=== PATIENT | female | born 1970 | race Caucasian/White ===

== ENCOUNTER → 2020-03-28 | Outpatient (CLI) | payer MEDICAID | END | disposition home or self-care (01) | LOC: LABWHC1 13:50 | PROVIDERS: ATTEND Pediatrics Pediatric Infectious Diseases | DX: U07.1 COVID-19 (principal) | CPT/HCPCS: 87635 ==

== ENCOUNTER → 2021-03-29 | Outpatient (CLI) | payer MEDICAID ==
--- NOTE | 2021-04-01 11:34 | MM ---
Reason for exam: screening (asymptomatic). History: Patient is postmenopausal. Physical Findings: A clinical breast exam by your physician is recommended on an annual basis and results should be correlated with mammographic findings. MG 3D Screening Mammo W/Cad Bilateral CC and MLO view(s) were taken. XCCL view(s) were taken of the right breast. No prior studies available for comparison. The breast tissue is heterogeneously dense. This may lower the sensitivity of mammography. Finding: There are indeterminate microcalcifications in the upper outer quadrant of the left breast zone B. ASSESSMENT: Incomplete: need additional imaging evaluation, BI-RAD 0 RECOMMENDATION: Special view mammogram of the left breast. [facility] will attempt to contact patient to return for supplemental views.
== END | disposition home or self-care (01) ==
LOC: RADMAMWWP 10:57
PROVIDERS: ATTEND Family Medicine
DX: Z12.31 Encounter for screening mammogram for malignant neoplasm of breast (principal); Z78.0 Asymptomatic menopausal state
CPT/HCPCS: 77063; 77067

== ENCOUNTER → 2021-04-02 | Outpatient (CLI) | payer MEDICAID ==
--- NOTE | 2021-04-03 10:15 | MM ---
Reason for exam: additional evaluation requested from abnormal screening. Last mammogram was performed less than 1 month ago. History: Patient is postmenopausal. Took hormonal contraceptives beginning at age 20. Physical Findings: Nurse Summary: 1cm nodule in the left breast at 2 o'clock (nurse dw). MG 3D Work Up W/Cad LT CC with magnification, LM with magnification, and LM view(s) were taken of the left breast. Prior study comparison: March 29, 2021, bilateral MG 3d screening mammo w/cad. The breast tissue is heterogeneously dense. This may lower the sensitivity of mammography. Finding: There are indeterminate grouped/clustered calcifications in the outer quadrant, central position of the left breast. These results were verbally communicated with the patient and result sheet given to the patient on 04/02/21. ASSESSMENT: Suspicious, BI-RAD 4 RECOMMENDATION: Stereotactic core biopsy of the left breast. Called Dr. Connors's office with mammographic findings and has scheduled an appointment for the patient for 05/30/21 at 8:[address] Luo. Biopsy scheduled for 04/05/21 at 10:00. PRELIMINARY REPORT CALLED AND FAXED TO DR. LUO ON 04/03/21.
--- NOTE | 2021-04-03 10:20 | USB ---
Reason for exam: additional evaluation requested from abnormal screening. History: Patient is postmenopausal. Took hormonal contraceptives beginning at age 20. US Breast Limited LT Left limited breast ultrasound including focal area of concern, retroareolar and axilla demonstrates a 7 x 2 x 5mm oval, cystic lesion at 2 o'clock. These results were verbally communicated with the patient and result sheet given to the patient on 04/02/21. ASSESSMENT: Benign, BI-RAD 2 RECOMMENDATION: Stereotactic core biopsy of the left breast. (calcifications) Manage patient on a clinical basis. Called Dr. Connors's office with mammographic findings and has scheduled an appointment for the patient for 05/30/21 at 8:[address] Luo. Biopsy scheduled for 04/05/21 at 10:00. PRELIMINARY REPORT CALLED AND FAXED TO DR. LUO ON 04/03/21.
--- NOTE | 2021-04-04 09:50 | USB ---
Reason for exam: additional evaluation requested from abnormal screening. History: Patient is postmenopausal. Took hormonal contraceptives beginning at age 20. US Breast Workup Limited LT Left limited breast ultrasound including focal area of concern, retroareolar and axilla demonstrates a 7 x 2 x 5mm oval, cystic lesion at 2 o'clock. These results were verbally communicated with the patient and result sheet given to the patient on 04/02/21. ASSESSMENT: Benign, BI-RAD 2 RECOMMENDATION: Stereotactic core biopsy of the left breast. (calcifications) Manage patient on a clinical basis. Called Dr. Connors's office with mammographic findings and has scheduled an appointment for the patient for 05/30/21 at 8:[address] Luo. Biopsy scheduled for 04/05/21 at 10:00. PRELIMINARY REPORT CALLED AND FAXED TO DR. LUO ON 04/03/21.
== END | disposition home or self-care (01) ==
LOC: RADMAMWWP 12:34
PROVIDERS: ATTEND Family Medicine
DX: R92.2 Inconclusive mammogram (principal); R92.1 Mammographic calcification found on diagnostic imaging of breast; N60.02 Solitary cyst of left breast; Z78.0 Asymptomatic menopausal state
CPT/HCPCS: 77061; 77065

== ENCOUNTER → 2021-04-05 | Day surgery (SDC) | payer MEDICAID ==
[2021-04-05 09:40] VITALS: RESP 16; TEMP 98.5
[2021-04-05 11:38] VITALS: BP 129/85; PULSE 67
--- NOTE | 2021-04-05 12:23 | MM ---
Stereotactic Mammotome core biopsy left breast. HISTORY: 2 separate biopsy left breast for microcalcifications The microcalcifications in question within the left breast were targeted by the undersigned. Procedure was performed by the undersigned. Informed consent was obtained and all of the patients questions were answered. The standard sterile technique was utilized and appropriate local anesthesia was obtained with 1% lidocaine. Mammotome probe was advanced and multiple core samples were obtained from the posterior site followed by anterior site and sent to pathology for interpretation. Microclip markers was deployed at the sites of biopsy. Post procedural mammogram demonstrates appropriate deployment of radiopaque clip markers. The patient tolerated the procedure well and left the department in stable condition. Pathology results are pending. IMPRESSION: Successful stereotactic core biopsy left breast (2 sites) with pathology results pending. Pathology Results: Malignant A. 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 See Surgical Pathology Cancer Case Summary and Comment. B. 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 See Surgical Pathology Cancer Case Summary and Comment. Recommendation Surgical consult of the left breast. YOGI
== END ==
LOC: RADMAMWWP 09:10
PROVIDERS: ATTEND Surgery
DX: C50.912 Malignant neoplasm of unspecified site of left female breast (principal); Z17.1 Estrogen receptor negative status [ER-]; R92.1 Mammographic calcification found on diagnostic imaging of breast
CPT/HCPCS: 88305; 88342; 88341; 19081; 19082; A4648; J2001

== ENCOUNTER → 2021-04-09 | Outpatient (CLI) | payer MEDICAID ==
--- NOTE | 2021-04-09 17:02 | XR ---
Result: Clinical History: Pain and swelling. Comparison: None available. Technique: 3 views of the right hand. Findings: There is linear lucency within the fifth metacarpal shaft seen on the lateral view. The remaining visualized osseous structures are in anatomic alignment. The joint spaces are preserve d. There is no definite radiopaque foreign body seen. Impression: Suspicious nondisplaced fracture of the fifth metacarpal.
== END | disposition home or self-care (01) ==
LOC: RADXRMAIN 16:33
PROVIDERS: ATTEND Emergency Medicine
DX: M79.641 Pain in right hand (principal)

== ENCOUNTER → 2021-04-17 | Outpatient (CLI) | payer MEDICAID ==
--- NOTE | 2021-04-18 13:20 | BMR ---
EXAMINATION TYPE: MR breast BILAT wo/w con DATE OF EXAM: 04/17/2021 COMPARISON: 3-D bilateral breast mammogram March 29, 2021 BI-RADS 0. Diagnostic left breast mammogram Ma y 2020 BI-RADS 4. Limited left breast ultrasound workup April 02, 2021 BI-RADS 2. HISTORY: Left breast cancer. Stereotactic guided biopsy April 05, 2021 2 sites positive for high-grade DCIS both levels. TECHNIQUE: A series of fat and water weighted images in the long and short axis views of both breasts are obtained in conjunction with dynamic contrast MRI with subtraction technique. The patient was i njected with 7 mL intravenous Gadavist gadolinium contrast. Three-dimensional and additional postpr ocessing imaging is created on independent workstation and reviewed during official interpretation of this study. FINDINGS: Heterogeneously dense fibroglandular tissue bilaterally is redemonstrated. T2 and STIR weig hted images show scattered small thin-walled cysts bilaterally on background dense tissue. In additio n in the outer aspect left breast there is 2.8 x 2.0 x 2.2 cm oval circumscribed fluid collection pre sumed post sampling hematoma anterior depth. Symmetric benign-appearing subcentimeter axillary lymph nodes are identified. No suspicious axillary adenopathy. Dynamic postcontrast imaging shows mild/mode rate background enhancement with more prominent enhancement throughout the left breast. Delayed post contrast axial images show no suspicious internal mammary adenopathy. There is focal atelectatic van ge in the anterior right lung base noted. With regards to the right breast there is no abnormal skin thickening. No pathologic enhancement or e nhancing masses identified. The chest wall is intact. With regards to the left breast. There is artif act from biopsy clip noted in the lateral aspect of the well-defined fluid collection or hematoma. Ar tifact from second biopsy clip less well-seen but is present just inferior posterior to this seen bes t on subtraction and postcontrast images for reference image 267 series 701. No abnormal skin thicken ing. The chest wall is intact. With regards to the left breast, post biopsy hematoma and artifact from biopsy clips identified. Ther e is nonmass enhancement extending up to 1.0 cm relative to the nipple level of nipple extending over approximately 7 cm length of the lateral portion of the left breast corresponding to residual suspic ious regional calcifications on mammogram. Dynamic postcontrast imaging shows fairly benign gradual e nhancement but presence of regional suspicious calcifications is worrisome. In addition in the anterior depth inferior 6:00 position left breast there is 1.5 x 0.9 x 1.9 cm oval enhancing lesion that shows areas of suspicious gradual and washout enhancement on dynamic postcontr ast imaging. Finally in the marked posterior aspect left breast there is a 5 x 2 x 10 mm enhancing subcentimeter m ass with areas of plateau and washout-type enhancement on dynamic postcontrast imaging more inferior to the larger suspicious lesion. IMPRESSION: No MRI evidence for invasive malignancy in the right breast. Abnormal regional enhancemen t left breast extends anterior and posterior to the biopsy clips corresponding to regional suspicious microcalcifications on mammogram. 2 additional areas of concern in the left breast noted on MRI. Pat ient likely not candidate based on mammogram and MRI findings for conservation therapy or treatment i n the biopsy-proven left breast neoplasm, high-grade DCIS.
== END | disposition home or self-care (01) ==
LOC: RADMRIMAIN 16:41
PROVIDERS: ATTEND Surgery
DX: C50.912 Malignant neoplasm of unspecified site of left female breast (principal)
CPT/HCPCS: 77049; C8937; A9585

== ENCOUNTER → 2021-06-26 | Outpatient (CLI) | payer MEDICAID, OTHER ==
--- NOTE | 2021-06-26 14:44 | XR ---
EXAMINATION TYPE: XR chest 2V DATE OF EXAM: 06/26/2021 COMPARISON: NONE TECHNIQUE: PA and lateral views submitted. HISTORY: Cough FINDINGS: The lungs are clear and there is no pneumothorax, pleural effusion, or focal pneumonia. Mild hyperin flation. There is a slight pectus excavatum deformity. Mild hypertrophic change of the spine. IMPRESSION: 1. No acute process.
== END | disposition home or self-care (01) ==
LOC: RADXRMAIN 14:22
PROVIDERS: ATTEND Family Medicine
DX: R05 Cough (principal)
CPT/HCPCS: 71046

== ENCOUNTER 2021-07-12 06:30 | Observation (INO) | payer MEDICAID, OTHER ==
[2021-07-09 15:09] VITALS: BMI 23.3
--- NOTE | 2021-07-11 13:20 | P.GSHP ---
History of Present Illness H&P Date: 07/12/21 Chief Complaint: Left breast cancer 51-year-old female known to our service. Patient diagnosed in March with abnormal mammogram showing diffuse calcifications. Patient had 2 areas biopsied using stereotactic technique. Both biopsy sites revealed high-grade ductal carcinoma in situ. Patient had breast MRI following that was demonstrated 7 cm span of atypical calcifications suspicious for residual disease. Patient has been seen by oncology and plastic surgery. Genetic testing shows no actionable genetic mutation. Patient interested in bilateral mastectomy with reconstruction. Past Medical History Past Medical History: Cancer, Hypertension Additional Past Medical History / Comment(s): left breast cancer dx. 04-05-21, just place on BP med. recently History of Any Multi-Drug Resistant Organisms: None Reported Past Surgical History: Orthopedic Surgery Additional Past Surgical History / Comment(s): Left elbow surgery, D & C's Past Anesthesia/Blood Transfusion Reactions: No Reported Reaction Smoking Status: Former smoker - Past Family History Mother Family Medical History: No Reported History Medications and Allergies Home Medications Medication Instructions Recorded Confirmed Type Losartan Potassium [Cozaar] 50 mg PO DAILY 07/09/21 07/09/21 History Allergies Allergy/AdvReac Type Severity Reaction Status Date / Time bee pollen Allergy Anaphylaxis Verified 07/09/21 14:37 Surgical - Exam Physical exam: General: Well-developed, well-nourished HEENT: Normocephalic, sclerae nonicteric Abdomen: Nontender, nondistended Extremities: No edema Neuro: Alert and oriented Right breast: No masses, no adenopathy Left breast: Residual induration at biopsy site, no adenopathy Assessment and Plan (1) Cancer of left breast Narrative/Plan: 51-year-old female with left breast high-grade DCIS that appears to be widespread by both mammography and MRI. Breast conservation felt to not be an option in this case. Patient is interested in bilateral mastectomy with reconstruction. She is scheduled for bilateral simple mastectomy with left breast sentinel lymph node biopsy/injection and concurrent reconstruction by plastic surgery. Risks of bleeding, infection, scarring, pain, numbness, loss of nipple, seroma, nerve injury, numbness, weakness, lymphedema, possible need for further surgery, recurrence reviewed. She understands and wishes to proceed. Status: Acute Code(s): C50.912 - MALIGNANT NEOPLASM OF UNSPECIFIED SITE OF LEFT FEMALE BREAST SNOMED Code(s): 390141266
[~2021-07-12 06:30] MED LIST: ACETAMINOPHEN TAB 500 MG TAB PO PRN; DEXAMETHASONE SOD PHOSPHATE 4 MG/ML 1 ML VIAL IV ONE; HEPARIN SODIUM,PORCINE/PF 5,000 UNIT/0.5 ML SYRINGE SQ PRN; LIDOCAINE 1% (10MG/ML) FOR IV START INTRADERMA PRN; MIDAZOLAM 2 MG/2 ML VIAL IV PRN; ONDANSETRON 4 MG/2 ML VIAL IVP ONE; Pre Op ABX Message 1 EACH MISC MISCELLANE ONE
[2021-07-12] MEDS: LACTATED RINGERS 1,000 ML IV SCH (07:10)
--- NOTE | 2021-07-12 08:13 | NM ---
EXAMINATION TYPE: NM sentinel node injection DATE OF EXAM: 07/12/2021 COMPARISON: NONE HISTORY: Left breast cancer. Intraductal carcinoma. TECHNIQUE AND FINDINGS: The procedure of sentinel lymph node injection was explained to the patient. The benefits, alternatives, and risks were discussed. An informed consent was then obtained. Overlying skin is cleaned with sterile alcohol. Following this, 490 uCi Tc99m Tilmanocept was inject ed in the upper outer aspect of the left nipple intradermally. The patient tolerated the procedure well without any immediate complication. The patient was kept in the radiology department for short stay after the procedure and then taken to surgery for surgical p rocedure what is presumed intraoperative gamma probe will be used for sentinel lymph node detection. IMPRESSION: Left breast radiotracer injection for sentinel node localization as above.
[2021-07-12] MEDS ORDERED: ceFAZolin 1,000 MG VIAL IVPB ONE (08:17)
[2021-07-12] MEDS ORDERED: PHENYLEPHRINE-0.9% NACL SYG 1,000 MCG/10 ML SYRINGE ONE (08:56)
[2021-07-12] MEDS ORDERED: LIDOCAINE 1% INJ 10MG/ML (20 ML MDV) ONE (08:56)
[2021-07-12] MEDS ORDERED: MIDAZOLAM 2 MG/2 ML VIAL ONE (08:56)
[2021-07-12] MEDS ORDERED: ePHEDrine SULFATE/0.9% NACL/PF 50 MG/5 ML SYRINGE IV ONE (08:56)
[2021-07-12] MEDS ORDERED: PROPOFOL 10 MG/ML 20 ML VIAL IV ONE (08:56)
[2021-07-12] MEDS ORDERED: SUCCINYLCHOLINE CHLORIDE 100 MG/5 ML SYR IV ONE (08:56)
[2021-07-12] MEDS ORDERED: fentaNYL (PF) 50 MCG/ML 2 ML AMP ONE (08:56)
[2021-07-12] MEDS ORDERED: KETAMINE 10 MG/ML 20 ML VIAL ONE (08:56)
[2021-07-12] MEDS ORDERED: METHYLENE BLUE 50 MG/10 ML AMPUL INJ ONE (09:36)
[2021-07-12] MEDS ORDERED: LACTATED RINGERS 1,000 ML IV ONE ×2 (10:30→12:30)
[2021-07-12] MEDS ORDERED: NALOXONE 0.4 MG/ML 1 ML VIAL IV PRN (11:27)
[2021-07-12] MEDS ORDERED: ONDANSETRON 4 MG/2 ML VIAL IVP PRN (11:28)
[2021-07-12] MEDS ORDERED: ACETAMINOPHEN TAB 325 MG TAB PO PRN (11:28)
--- NOTE | 2021-07-12 11:33 | P.OP ---
Date of Procedure: 07/12/21 Procedure(s) Performed: PREOPERATIVE DIAGNOSIS: Left breast cancer POSTOPERATIVE DIAGNOSIS: Same PROCEDURE: Right nipple sparing mastectomy, Left skin sparing mastectomy with sentinel lymph node biopsy with concurrent reconstruction SURGEON: Puja EBL: Minimal ANESTHESIA: General COMPLICATIONS: None OPERATIVE PROCEDURE: Patient was placed on the operating room table in the supine position. 2 mL of methylene blue was injected into the left subareolar space. The breast was then massaged for 5 minutes. The upper torso anteriorly was prepped and draped in usual sterile fashion. The right side was first addressed. A slightly curvilinear incision was made along the inferior aspect of the right breast. Dissection through the subcutaneous tissues took place using electrocautery down to the chest wall circumferentially. The breast was removed from the chest wall at that time. The Ligaclip was used for small visible vessels. No bleeding was encountered. Dr. Grove from plastic surgery then took over on the right chest wall to begin his reconstruction with tissue expanders. The left side was then addressed. A small curvilinear incision in the left axilla took place over the hot spot identified by neoprobe. The subcutaneous tissues were divided using electrocautery and blunt dissection. A total of 2 hot lymph nodes that had bluish discoloration were identified and removed. Both of these lymph nodes had a benign appearance clinically. These were not sent for frozen section but instead sent in formalin for permanent sectioning. A circular incision was then made around the areola. The skin hooks were utilized and the flaps were raised circumferentially using electrocautery down to the chest wall. The breast was again removed from the chest wall using electrocautery. Small vessels were ligated using the clip vegetable sorter. No bleeding was seen. The left chest wall was then again handed off to Dr. Grove for formal closure and tissue yard attendant placement. At that point I exited the room. The family was informed of the progress of surgery. DISPOSITION: Patient to remain in the operating for completion and closure by Dr. Grove.
[2021-07-12] MEDS ORDERED: diphenhydrAMINE 50 MG/ML 1 ML VIAL IVP ONE (12:53)
[2021-07-12] MEDS ORDERED: diphenhydrAMINE 50 MG/ML 1 ML VIAL ONE (12:55)
[2021-07-12] MEDS: HYDROmorphone 0.5 MG/0.5 ML SYRINGE IVP PRN ×6 (12:57→22:51)
--- NOTE | 2021-07-12 14:36 | OP ---
OPERATIVE REPORT DATE OF SURGERY: July 12, 2021. SURGEON: Javier Grove M.D. PREOPERATIVE DIAGNOSES: 1. Acquired loss of right and left breast. 2. Left breast cancer. POSTOPERATIVE DIAGNOSES: 1. Acquired loss of right and left breast. 2. Left breast cancer. OPERATIVE PROCEDURE: 1. Immediate reconstruction right breast following mastectomy with insertion of tissue classification control clerk and subsequent outpatient expansion. 2. Immediate reconstruction left breast following mastectomy with insertion of tissue classification control clerk and subsequent outpatient expansion. 3. Implantation of reconstructive graft for right and left breast reconstruction. OPERATIVE INDICATIONS: Patient is a 51-year-old female, who has invasive cancer of the left breast. She is referred to my care for breast reconstruction. She plans to go undergo bilateral mastectomies for treatment of her breast cancer. The sentinel lymph node will also be removed at the surgery. Additionally, the patient desires to preservation of her right nipple via nipple sparing mastectomy. I have coordinated the patient's surgical reconstruction with her cancer surgeon, Dr. Luo. The patient is aware there are potential risks and complications related to surgery including but not limited to hematoma, seroma, wound healing problems, loss of sensation, postoperative infection, among others. She also understands the staged nature of breast reconstructive surgery. Furthermore, the patient is aware that nipple viability may be of a concern and add additional risks to the procedure she has chosen. She has requested perform the surgery. OPERATIVE PROCEDURE SUMMARY: The patient is seen in the preoperative area, markings made. Procedure reviewed. All questions answered. She was transported to the operating room where she was placed in supine position. Following induction of general tracheal anesthesia, the patient is prepped and draped in the usual fashion. Dr. Luo and the surgical team then proceeded with the right nipple sparing mastectomy through an inferior transverse mid breast incision. Once that procedure was completed. I entered the case for reconstruction of the right breast. Dr. Luo proceeded with the left sentinel lymph node excision and left simple mastectomy procedures. The pectoralis muscle lateral border was identified on the right side where during the chest wall loose connective tissue divided with cautery allowing entry into the potential plane between the pectoralis major and minor muscles was bluntly developed. Medial attachment fibers of the pectoralis major muscle to ribs were released with cautery but no sternal attachments. Additional muscle tissue was required for sufficient reconstructive coverage inferomedially rectus abdominis muscle and fascia, inferolaterally external abdominal oblique muscle and fascia and laterally serratus anterior muscle and fascia were all elevated through this approach with cautery maintaining hemostasis while dissecting. Once a sufficient sized submuscular reconstructive plane was developed, dissection stopped. Irrigations performed. Hemostasis was excellent. Once Dr. Luo completed the left-sided procedures and then proceeded with left reconstruction. Instrument and needle and sponge counts were correct from prior procedures. The pectorals major muscle on the left side was identified where it joined the chest wall on the lateral aspect. Loose connective tissue divided with cautery here allowing entry into the potential plane between the pectoralis major and minor muscles which was bluntly developed. Medial attachment fibers of the pectoralis major muscle to ribs were released with cautery but not all sternal attachments. Additional muscle tissue was required for sufficient reconstructive coverage inferomedially rectus abdominis muscle fascia inferolaterally, external abdominal oblique muscle and fascia and laterally serratus anterior muscle fascia were all elevated through this approach with cautery maintaining hemostasis during the dissection. Once a sufficient sized submuscular reconstructive pocket was created and also in a symmetric fashion to the right. Dissection stopped. Irrigations performed. Hemostasis was excellent. The cavities were sized and minor adjustments made to optimize symmetry. The tissue expanders were now opened on the field. Both expanders were from the [employer] model 133 S FX tissue classification control clerk, 450 mL volume, reference #133 S-[id number] 2-T. The right- sided device serial number was [id number]. The left-sided device serial number was [id number]. Each device was only handled by the surgeon. All air extracted and 100 mL 0.9 normal saline instilled in the each device. The right left-sided tissue expanders were inserted in the reconstructive field. Unfortunately, muscle flap tissue was not sufficient for coverage. It was thin and attenuated, and there were small rents within the tissue. Both expanders were removed and placed in the containers with saline and SurgiMend reconstructive graft opened on the field, 2 sheets measuring 10 x 15 cm, thin and fenestrated were vitalized room temperature saline. Once ready, the SurgiMend was inserted in the right and left reconstructed surgical sites, placing the tissue graft in a modified inferior sling location on each side, securing the graft medially with interrupted and short running 3-0 Vicryl sutures. The expanders were now replaced into the reconstructive pocket deep to the muscle flap and SurgiMend and then the SurgiMend closed the lateral aspect on each side, advancing SurgiMend under the muscle but over the tissue classification control clerk then securing with interrupted and short running 3-0 Vicryl. Complete coverage now obtained. Each classification control clerk was filled to a final volume of 300 mL, which appeared optimal. 19 Rocael channel drains were now inserted in each mastectomy site and brought thru separate stab incisions, right or left anterior lateral chest wall is drain sutured in place with 2-0 Prolene. The right-sided mastectomy wound site was closed, approximated deep dermis using inverted interrupted 4-0 Monocryl completed superficial dermis epidermis with subcuticular 3-0 Prolene. The left-sided procedure performed through a circumareolar approach. This mastectomy wound was now closed in a pursestring fashion using 2-0 Prolene deep dermal suture first followed by finer approximation of the dermis with interrupted 4-0 Monocryl and completing epidermal approximation with michael. Both drains were connected to close bulb suction and patent. Surgical clarke cleansed with saline dried. Postoperative bandages placed using a Kerlix squares and secured with Medipore tape. The patient was then extubated in the operating room, transferred to recovery room in good condition with stable vital signs. ESTIMATED BLOOD LOSS: Was 50 mL. There were no complications. MMODL / IJN: [id number] / YOGI
[2021-07-12] MEDS ORDERED: ALPRAZolam 0.25 MG TAB PO PRN ×2 (16:33→16:36)
[2021-07-12] MEDS: D5-0.45% NACL WITH KCL 20MEQ/L 1,000 ML IV SCH ×2 (16:52→20:31)
[2021-07-12] MEDS: HEPARIN SODIUM,PORCINE/PF 5,000 UNIT/0.5 ML SYRINGE SQ SCH ×2 (16:53→20:24)
[2021-07-12] MEDS: LOSARTAN 50 MG TAB PO SCH (16:58)
[2021-07-12] MEDS: DOCUSATE 100 MG CAP PO SCH (20:23)
[2021-07-12] MEDS: HYDROcodone/APAP 5-325MG 1 EACH TAB PO PRN (20:23)
--- NOTE | 2021-07-12 20:59 | CONS ---
CONSULTATION DATE OF SERVICE: 07/12/2021 REASON FOR CONSULTATION: Advice regarding hypertension and multiple medical issues, requested by Dr. Luo. HISTORY OF PRESENT ILLNESS: This 51-year-old woman with a past medical history hypertension and history of breast cancer underwent right nipple-sparing mastectomy and left skin-sparing mastectomy with sentinel lymph node biopsy and concurrent reconstruction for left breast cancer. There is no history of any fever, rigors or chills. No history of headache, loss of consciousness, seizures at this time. PAST MEDICAL HISTORY: History of hypertension, history of left breast cancer, history of nicotine dependence. MEDICATIONS: Home medications are losartan 50 mg p.o. daily. ALLERGIES: BEE POLLEN. FAMILY HISTORY: No history of heart disease or strokes in the family. SOCIAL HISTORY: Previous history of smoking. Quit smoking in 2014. No history of alcohol intake. REVIEW OF SYSTEMS: ENT: No diminished hearing. No diminished vision. CARDIOVASCULAR SYSTEM: No angina, palpitations. RESPIRATORY SYSTEM: No cough, hemoptysis. GI: No nausea, vomiting, diarrhea. : No dysuria. NERVOUS SYSTEM: No numbness, weakness. ALLERGY/IMMUNOLOGY: No asthma or hay fever. MUSCULOSKELETAL: As mentioned earlier. HEMATOLOGY/ONCOLOGY: As mentioned earlier. ENDOCRINE: No history of diabetes, hypothyroidism. CONSTITUTIONAL: As mentioned earlier. DERMATOLOGY: Negative. RHEUMATOLOGY: Negative. PSYCHIATRY: As mentioned earlier. PHYSICAL EXAMINATION: Patient alert and oriented x3. Pulse 103, blood pressure 125/60, respirations 16, temperature 98.4, pulse ox 94% on room air. HEENT: Conjunctivae normal. NECK: No jugular venous distention. CARDIOVASCULAR: S1, S2 muffled. RESPIRATION: Breath sounds diminished at the bases. No rhonchi. No crackles. ABDOMEN: Soft, non-tender. No mass palpable. LEGS: No edema. No swelling. EXAMINATION OF THE BREAST: Status post surgery. NERVOUS SYSTEM: No focal deficit. LYMPHATICS: No lymph node palpable in neck, axillae or groin. SKIN: No ulcer, rash, bleeding. JOINTS: No active deforming arthropathy. LABS: Labs are not available. The preoperative labs include hemoglobin of 17 in 2019. ASSESSMENT: 1. Status post mastectomy for left breast cancer and concurrent reconstruction. 2. Hypertension. 3. History of degenerative joint disease. 4. History of nicotine dependence. 5. FULL CODE. RECOMMENDATIONS AND DISCUSSION: In this 51-year-old woman who presented with multiple complex medical issues, at this time I recommend to continue current medications, continue with symptomatic treatment. Otherwise, I recommend resuming the home medications. Monitor blood pressure closely. Symptomatic treatment. P.r.n. Xanax. The patient may be asked to follow up with primary physician closely after discharge. Will follow the patient closely with you. Thank you, Dr. Luo, for letting us participate in the care of this patient. MMODL / IJN: [id number] /
[2021-07-13] MEDS: HYDROcodone/APAP 5-325MG 1 EACH TAB PO PRN ×4 (00:29→16:01)
[2021-07-13] MEDS: HYDROmorphone 0.5 MG/0.5 ML SYRINGE IVP PRN ×4 (03:51→17:02)
[2021-07-13] MEDS: LACTATED RINGERS 1,000 ML IV SCH (04:20)
[2021-07-13] MEDS ORDERED: PANTOPRAZOLE 40 MG/10 ML VIAL IV SCH (09:00)
[2021-07-13] MEDS: LOSARTAN 50 MG TAB PO SCH (09:03)
[2021-07-13] MEDS: DOCUSATE 100 MG CAP PO SCH ×2 (09:03→19:38)
[2021-07-13] MEDS: HEPARIN SODIUM,PORCINE/PF 5,000 UNIT/0.5 ML SYRINGE SQ SCH ×3 (09:04→22:12)
[2021-07-13] MEDS: D5-0.45% NACL WITH KCL 20MEQ/L 1,000 ML IV SCH ×2 (09:06→18:18)
[2021-07-13] MEDS ORDERED: IBUPROFEN 600 MG TAB PO PRN (09:59)
--- NOTE | 2021-07-13 09:59 | P.PN ---
Subjective Progress Note Date: 07/13/21 Principal diagnosis: Bilateral mastectomy Patient doing well today. Pain is better than she expected. Still requiring narcotics however. She is moving about. Drain output is appropriate. Objective - Vital Signs Vital signs: Vital Signs Temp 98.2 F 07/13/21 07:30 Pulse 74 07/13/21 07:30 Resp 17 07/12/21 22:59 BP 131/81 07/13/21 07:30 Pulse Ox 96 07/13/21 07:30 Intake & Output 07/12/21 07/13/21 07/13/21 18:59 06:59 18:59 Intake Total 2300 310 Output Total 180 180 60 Balance 2120 130 -60 Weight 65 kg Intake: IV 2250 Intake, IV Titration 50 310 Amount Lactated Ringers 1,000 ml 210 @ 20 mls/hr IV .Q24H [facility] Rx#:[id number] ceFAZolin 2 gm In Sodium 50 100 Chloride 0.9% 50 ml @ 100 mls/hr IVPB Q8H [facility] Rx#: [id number] Output: Drainage 40 180 60 Bilateral Breast 80 Left Breast 20 40 20 Right Breast 20 60 40 Urine 90 Estimated Blood Loss 50 Other: Voiding Method Toilet Toilet # Voids 3 - Exam Bilateral chest wall flaps without ischemia, mild tenderness, no hematoma Assessment and Plan (1) Cancer of left breast Narrative/Plan: Patient doing well today. Continue pain control. Ambulate. Possible discharge later today or tomorrow. Current Visit: No Status: Acute Code(s): C50.912 - MALIGNANT NEOPLASM OF UNSPECIFIED SITE OF LEFT FEMALE BREAST SNOMED Code(s): 871797038
--- NOTE | 2021-07-13 12:54 | P.PN ---
Subjective Progress Note Date: 07/13/21 Principal diagnosis: Status post bilateral mastectomy 51-year-old female with history of hypertension and left breast cancer admitted for bilateral mastectomy. On 07/13/2021- patient is seen and examined at the bedside. She is comfortably sitting up in the bed appears to be in no acute distress. Patient denies having any fevers chills or rigors. No chest pain or palpitations. No cough or difficulty breathing. No abdominal pain nausea vomiting or diarrhea. Patient did not have a bowel movement but says that she is passing gas. Denies having any dysuria or hematuria. On reviewing the vitals T-max of 99.2, heart rate 88, respiratory rate 17, blood pressure 162/79, saturating at 98% on room air. No new labs from this morning. Objective - Vital Signs Vital signs: Vital Signs Temp 98.2 F 07/13/21 07:30 Pulse 74 07/13/21 07:30 Resp 17 07/12/21 22:59 BP 131/81 07/13/21 07:30 Pulse Ox 96 07/13/21 07:30 Intake & Output 07/12/21 07/13/21 07/13/21 18:59 06:59 18:59 Intake Total 2300 310 Output Total 180 180 60 Balance 2120 130 -60 Weight 65 kg Intake: IV 2250 Intake, IV Titration 50 310 Amount Lactated Ringers 1,000 ml 210 @ 20 mls/hr IV .Q24H [facility] Rx#:[id number] ceFAZolin 2 gm In Sodium 50 100 Chloride 0.9% 50 ml @ 100 mls/hr IVPB Q8H [facility] Rx#: [id number] Output: Drainage 40 180 60 Bilateral Breast 80 Left Breast 20 40 20 Right Breast 20 60 40 Urine 90 Estimated Blood Loss 50 Other: Voiding Method Toilet Toilet # Voids 3 - Exam PHYSICAL EXAM GEN. APPEARANCE: alert, in no apparent distress HEENT: No pallor, no icterus NECK: No JVD CHEST: She has bilateral drain in place with minimal serous discharge RESPIRATORY EXAM: Bilateral breath sounds are positive. No wheeze or crackles CARDIOVASCULAR EXAM: regular rate, normal rhythm, normal heart sounds. GI/ABDOMINAL EXAM: soft, normal bowel sounds. Absent: distended, tenderness, guarding, rebound, rigid EXTREMITIES EXAM: No edema NEUROLOGICAL EXAM: alert, oriented X3, no focal deficits PSYCHIATRIC EXAM: normal affect, normal mood SKIN EXAM: no rash Assessment and Plan Assessment: ASSESSMENT Status post bilateral mastectomy for left breast cancer and concurrent reconstruction Hypertension History of DJD History of nicotine dependence PLAN: She is status post postop day 1. Patient is advised to continue with incentive spirometry. DVT prophylaxis with heparin. Patient's blood pressure has been doing better so we'll continue with losartan 50 mg daily. Pain management as per primary team. Further recommendations to follow depending on the progress of the patient.
[2021-07-13 20:28] VITALS: RESP 16
[2021-07-13] MEDS: traMADol 50 MG TAB PO PRN (20:31)
[2021-07-14] MEDS: HYDROcodone/APAP 5-325MG 1 EACH TAB PO PRN ×3 (01:21→13:48)
[2021-07-14] MEDS: traMADol 50 MG TAB PO PRN ×3 (04:05→16:56)
[2021-07-14] MEDS: D5-0.45% NACL WITH KCL 20MEQ/L 1,000 ML IV SCH ×2 (04:07→14:53)
[2021-07-14] MEDS: LACTATED RINGERS 1,000 ML IV SCH (06:33)
[2021-07-14] MEDS ORDERED: PANTOPRAZOLE 40 MG TABLET PO SCH (07:30)
[2021-07-14] MEDS: DOCUSATE 100 MG CAP PO SCH (07:34)
[2021-07-14] MEDS: HEPARIN SODIUM,PORCINE/PF 5,000 UNIT/0.5 ML SYRINGE SQ SCH ×2 (07:35→16:53)
--- NOTE | 2021-07-14 10:18 | P.DS ---
Providers Date of admission: 07/12/21 22:57 Expected date of discharge: 07/14/21 Attending physician: Justus Luo Consults: 07/12/21 11:28 Consult Physician Routine Consulting Provider: Maximilian Hawkins Consult Reason/Comments: Medical management Do you want consulting provider notified?: Yes Primary care physician: Janelle Connors - Discharge Diagnosis(es) (1) Cancer of left breast Patient minute on Thursday after bilateral mastectomy with reconstruction. Patient kept for pain control. Doing well today. Tolerating oral pain medications. Drain output appropriate. Both chest wall with flaps that are viable without evidence of ischemia. Will change dressings. May discharged today. Follow-up one week. Current Visit: No Status: Acute Plan - Discharge Summary Discharge Rx Participant: No New Discharge Prescriptions: New HYDROcodone/APAP 5-325MG [[place] 5-325] 1 tab PO Q6HR PRN 3 Days #12 tab PRN Reason: Analgesia No Action Losartan Potassium [Cozaar] 50 mg PO DAILY Discharge Medication List Losartan Potassium [Cozaar] 50 mg PO DAILY 07/09/21 [History] HYDROcodone/APAP 5-325MG [[place] 5-325] 1 tab PO Q6HR PRN 3 Days #12 tab 07/13/21 [Rx] Follow up Appointment(s)/Referral(s): Justus Luo MD [Medical Doctor] - 07/24/21 2:30 pm Javier Grove MD [STAFF PHYSICIAN] - 07/18/21
[2021-07-14] MEDS: LOSARTAN 50 MG TAB PO SCH (11:07)
[2021-07-14 15:49] VITALS: BP 144/88; PULSE 60; TEMP 98.3
[2021-07-14 16:21] LABS: African American GFR (CKD) >90 (>60 ml/min/1.73 sqM); Anion Gap 4 mmol/L; Blood Urea Nitrogen 3 mg/dL (7-17); Calcium 8.8 mg/dL (8.4-10.2); Carbon Dioxide 26 mmol/L (22-30); Chloride 103 mmol/L (98-107); Glucose 102 mg/dL (74-99); Non-African American GFR(CKD) >90 (>60 ml/min/1.73 sqM); Potassium 4.5 mmol/L (3.5-5.1); Sodium 133 mmol/L (137-145)
[2021-07-14 17:05] LABS: Basophils % (A) 0 %; Eosinophils # (A) 0.1 k/uL (0-0.7); Eosinophils % (A) 1 %; HCT 48.4 % (34.0-46.0); HGB 16.2 gm/dL (11.4-16.0); Lymphocytes # (A) 1.6 k/uL (1.0-4.8); Lymphocytes % (A) 28 %; MCH 37.2 pg (25.0-35.0); MCHC 33.4 g/dL (31.0-37.0); MCV 111.4 fL (80.0-100.0); Macrocytosis Marked; Mean Platelet Volume 7.7; Monocytes # (A) 0.2 k/uL (0-1.0); Monocytes % (A) 4 %; Neutrophils # (A) 3.8 k/uL (1.3-7.7); Neutrophils % (A) 66 %; Platelet Count 168 k/uL (150-450); RBC 4.35 m/uL (3.80-5.40); WBC 5.8 k/uL (3.8-10.6)
== END 2021-07-14 17:38 | disposition home or self-care (01) ==
LOC: OR 06:30 → 4SSUR 12:46 → OR 22:57
PROVIDERS: ADMIT Surgery; ATTEND Surgery
DX: D05.12 Intraductal carcinoma in situ of left breast (principal); I10 Essential (primary) hypertension; Z79.899 Other long term (current) drug therapy; Z87.891 Personal history of nicotine dependence
CPT/HCPCS: 19303 ×2; 38525; 19357 ×2; 97161; 80048; 85025; 88342; 88307; 88341; 38792; G0378 ×3; C1889; C1763; A9520; J2250; J1200; J1100; J0690 ×2; J2405; J2001; J3010; J2370; J0330; J2704; C9113; Q9968; J1170 ×2; J1644 ×3

== ENCOUNTER → 2021-08-06 | Outpatient (CLI) | payer MEDICAID, BC ==
--- NOTE | 2021-08-07 11:26 | ECHOF ---
Referral Reason:C50.812 breast ca MEASUREMENTS -------- HEIGHT: 170.2 cm WEIGHT: 63.5 kg BP: IVSd: 0.9 cm (0.6 - 1.1) LVIDd: 3.2 cm (3.9 - 5.3) LVPWd: 1.2 cm (0.6 - 1.1) IVSs: 1.4 cm LVIDs: 2.0 cm LVPWs: 1.8 cm Ao Diam: 2.9 cm (2.0 - 3.7) AV Cusp: 2.1 cm (1.5 - 2.6) LA Diam: 1.9 cm (2.7 - 3.8) MV EXCURSION: 17.614 mm (> 18.000) MV EF SLOPE: 120 mm/s (70 - 150) EPSS: 0.9 cm MV E Percy: 0.76 m/s MV DecT: 244 ms MV A Percy: 0.46 m/s MV E/A Ratio: 1.64 RAP: 5.00 mmHg RVSP: 16.07 mmHg FINDINGS -------- This was a technically difficult study with suboptimal views. Pt. Has breast expanders. The left ventricular size is normal. Left ventricular wall thickness is normal. Overall left vent ricular systolic function is normal with, an EF between 55 - 60 %. The right ventricle is normal in size. The left atrial size is normal. The right atrial size is normal. The aortic valve was not well visualized. The mitral valve is normal. There is trace mitral regurgitation. The tricuspid valve appears structurally normal. Trace tricuspid regurgitation present. Right rosendo tricular systolic pressure is normal at < 35 mmHg. The pulmonic valve was not well visualized. The aortic root size is normal. Normal inferior vena cava with normal inspiratory collapse consistent with estimated right atrial pre ssure of 5 mmHg. There is no pericardial effusion. CONCLUSIONS -------- 1. Pt. Has Breast expanders. 2. The left ventricular size is normal. 3. Left ventricular wall thickness is normal. 4. Overall left ventricular systolic function is normal with, an EF between 55 - 60 %. 5. There is trace mitral regurgitation. 6. Trace tricuspid regurgitation present. 7. There is no pericardial effusion. [employer] ASSOC: Yolanda Wells RDCS
== END | disposition home or self-care (01) ==
LOC: RADECHMAIN 14:10
PROVIDERS: ATTEND Internal Medicine Hematology & Oncology
DX: C50.812 Malignant neoplasm of overlapping sites of left female breast (principal); I34.0 Nonrheumatic mitral (valve) insufficiency; I07.1 Rheumatic tricuspid insufficiency
CPT/HCPCS: 93306

== ENCOUNTER 2021-08-15 11:25 | Day surgery (SDC) | payer MEDICAID, BC ==
[2021-08-13 14:07] VITALS: BMI 21.9
[~2021-08-15 11:25] MED LIST changes: +HYDROmorphone 0.5 MG/0.5 ML SYRINGE IVP PRN; +LACTATED RINGERS 1,000 ML IV SCH; -LIDOCAINE 1% (10MG/ML) FOR IV START INTRADERMA PRN; -MIDAZOLAM 2 MG/2 ML VIAL IV PRN
[2021-08-15 11:52] VITALS: TEMP 97.5
[2021-08-15] MEDS ORDERED: LIDOCAINE 1% (10MG/ML) FOR IV START INTRADERMA ONE (12:05)
[2021-08-15] MEDS ORDERED: LIDOCAINE (PF) 10 MG/ML 2 ML VIAL SQ ONE ×2 (12:42→13:15)
[2021-08-15] MEDS ORDERED: HEPARIN SODIUM,PORCINE 100 UNIT/ML 5 ML VIAL IV ONE ×2 (12:42→13:26)
[2021-08-15] MEDS ORDERED: SODIUM CHLORIDE 0.9% 100 ML BAG ONE (12:49)
[2021-08-15] MEDS ORDERED: MIDAZOLAM 2 MG/2 ML VIAL ONE (12:49)
[2021-08-15] MEDS ORDERED: PROPOFOL 10 MG/ML 20 ML VIAL IV ONE (12:49)
[2021-08-15] MEDS ORDERED: LIDOCAINE 1% INJ 10MG/ML (20 ML MDV) ONE (12:49)
[2021-08-15] MEDS ORDERED: fentaNYL (PF) 50 MCG/ML 2 ML AMP ONE (12:49)
[2021-08-15] MEDS ORDERED: ceFAZolin 1,000 MG VIAL ONE (12:49)
[2021-08-15] MEDS ORDERED: NALOXONE 0.4 MG/ML 1 ML VIAL IV PRN (13:50)
[2021-08-15] MEDS ORDERED: HYDROcodone/APAP 5-325MG 1 EACH TAB PO PRN (13:50)
--- NOTE | 2021-08-15 13:52 | P.OP ---
Date of Procedure: 08/15/21 Procedure(s) Performed: PREOPERATIVE DIAGNOSIS: Left breast cancer POSTOPERATIVE DIAGNOSIS: Same PROCEDURE: Port-A-Cath placement with fluoroscopic and ultrasound guidance SURGEON: Puja EBL: Minimal ANESTHESIA: Sedation COMPLICATIONS: None OPERATIVE PROCEDURE: Patient was brought and placed on the operative table in the supine position. The patient was sedated per anesthesia that time. The chest and neck were prepped and draped in usual sterile fashion. The ultrasound probe was used to identify the location of the right internal jugular vein. The skin was localized with lidocaine. The Seldinger needle was advanced into the IJ under ultrasound guidance. The wire was advanced through the needle under fluoroscopic guidance into the superior vena cava. A port pocket was created in the right infraclavicular location. The catheter was tunneled from the wire entrance site to the port pocket. The port was then connected to the catheter. The dilator introducer was threaded over the guidewire. The guidewire and dilator were then removed. The catheter was advanced through the introducer and introducer was then removed. The tip was seen to be in the right atrial junction via fluoroscopy. A picture of the radiograph showing the tip at the radial digital junction was taken. Port was flushed with both saline and a Hep- Lock solution. There was good flow both in and out of the port. The port was sutured in underlying tissues using 3-0 silk sutures. The subcutaneous tissues were reapproximated using 3-0 Vicryl sutures and the skin at both locations using 4-0 Monocryl sutures. Skin glue and sterile dressings then applied. DISPOSITION: Stable to recovery room
--- NOTE | 2021-08-15 14:09 | FL ---
EXAMINATION TYPE: FL guided central line placemt HISTORY: Fluoroscopy time Impression: 1. Fluoroscopy support provided to the referring physician. 7 seconds provided.
--- NOTE | 2021-08-15 14:22 | XR ---
EXAMINATION TYPE: XR chest 1V confirm line [facility] DATE OF EXAM: 08/15/2021 COMPARISON: 06/26/2021 HISTORY: Port-A-Cath placement TECHNIQUE: Single frontal view of the chest is obtained. FINDINGS: Postsurgical change overlying the breasts. Mediport catheter seen the tip overlying the SV C. No sizable pneumothorax. Heart size normal. Minimal subsegmental changes left lung base. No overt failure. IMPRESSION: 1. No postprocedural complication identified.
[2021-08-15 14:50] VITALS: RESP 20
[2021-08-15 15:09] VITALS: BP 133/76; PULSE 80
== END 2021-08-15 15:09 | disposition home or self-care (01) ==
LOC: OR 11:25
PROVIDERS: ATTEND Surgery
DX: Z45.2 Encounter for adjustment and management of vascular access device (principal); D05.12 Intraductal carcinoma in situ of left breast; I10 Essential (primary) hypertension; Z87.891 Personal history of nicotine dependence; Z90.13 Acquired absence of bilateral breasts and nipples
CPT/HCPCS: 36561; 77001; C1788; J2250; J2001 ×2; J1642; J1100; J2405; J0690; J3010; J2704; J1644

== ENCOUNTER → 2021-10-28 | Outpatient (CLI) | payer MEDICAID, BC ==
--- NOTE | 2021-10-29 10:11 | XR ---
EXAMINATION TYPE: XR chest 2V DATE OF EXAM: 10/28/2021 COMPARISON: 08/15/2021 TECHNIQUE: PA and lateral views submitted. HISTORY: Chronic cough FINDINGS: There is a retrocardiac areas of subsegmental linear consolidation.. Mediport catheter seen. Postoper ative change overlying the breasts. Heart size normal. No overt failure or pneumonia. IMPRESSION: 1. Basilar atelectasis bilaterally greater on the left underlying early infiltrate not entirely exclu ded correlate clinically..
== END | disposition home or self-care (01) ==
LOC: RADXRMAIN 17:50
PROVIDERS: ATTEND Internal Medicine
DX: R05.3 Chronic cough (principal)
CPT/HCPCS: 71046

== ENCOUNTER → 2021-10-31 | Outpatient (CLI) | payer MEDICAID, BC ==
[2021-10-31 11:51] LABS: African American GFR (CKD) >90 (>60 ml/min/1.73 sqM); Blood Urea Nitrogen 6 mg/dL (7-17); Non-African American GFR(CKD) >90 (>60 ml/min/1.73 sqM)
--- NOTE | 2021-10-31 13:06 | CT ---
EXAMINATION TYPE: CT chest w con DATE OF EXAM: 10/31/2021 COMPARISON: Chest x-ray 10/28/2021 HISTORY: cough, chest congestion CT DLP: 317.8 mGycm Automated exposure control for dose reduction was used. CONTRAST: CT scan of the chest is performed with IV Contrast, patient injected with 100 mL of Isovue 300. FINDINGS: LUNGS: Bandlike areas of probable atelectatic changes are again noted at the lung bases. There is a s mall focal area of groundglass opacity axial image 37 the right lower lobe which may be related to at electatic changes, difficult to exclude an early pneumonia.. Subpleural 5 mm nodular density and axia l image 36 in the right middle lobe, nodular density along the fissure which is likely focal thickeni ng on axial image 32, findings may be postinflammatory. There is no pleural effusion or pneumothorax seen. The tracheobronchial tree is patent. MEDIASTINUM: There are no greater than 1 cm hilar or mediastinal lymph nodes. No pericardial effusi on is seen. AORTA: No additional significant abnormality is seen. OTHER: Surgical clips are present in left axilla, there is a port over the right chest, right jugula r central venous catheter, distal tip the catheter is within the superior vena cava . IMPRESSION: Subpleural nodule may be postinflammatory, additional findings above, consider follow-up CT in 6-12 months to assess for stability.
== END | disposition home or self-care (01) ==
LOC: RADPROMAIN 10:32
PROVIDERS: ATTEND Internal Medicine Hematology & Oncology
DX: C50.812 Malignant neoplasm of overlapping sites of left female breast (principal); R05.9 Cough, unspecified
CPT/HCPCS: 82565; 84520; 71260; Q9967

== ENCOUNTER → 2021-11-04 | Outpatient (CLI) | payer MEDICAID, BC ==
--- NOTE | 2021-11-04 17:10 | ECHOF ---
Referral Reason:Z01.818 Chemo MEASUREMENTS -------- HEIGHT: 170.2 cm WEIGHT: 61.2 kg BP: RVIDd: 2.6 cm (< 3.3) IVSd: 0.9 cm (0.6 - 1.1) LVIDd: 3.9 cm (3.9 - 5.3) LVPWd: 1.1 cm (0.6 - 1.1) IVSs: 1.1 cm LVIDs: 3.1 cm LVPWs: 1.4 cm LA Diam: 3.1 cm (2.7 - 3.8) Ao Diam: 3.4 cm (2.0 - 3.7) AV Cusp: 1.9 cm (1.5 - 2.6) MV EXCURSION: 18.612 mm (> 18.000) MV EF SLOPE: 115 mm/s (70 - 150) EPSS: 0.5 cm MV E Percy: 0.74 m/s MV DecT: 191 ms MV A Percy: 0.65 m/s MV E/A Ratio: 1.13 RAP: 5.00 mmHg RVSP: 16.30 mmHg FINDINGS -------- Sinus rhythm. Pt has breast cancer and expanders in. LV size, wall thickness and systolic function are normal, with an EF greater than 55%. The left rosendo tricular size is normal. The right ventricle is normal in size. The left atrial size is normal. The right atrial size is normal. The aortic valve is trileaflet, and appears structurally normal. No aortic stenosis or regurgitation. There is trace mitral regurgitation. Mild tricuspid regurgitation present. Right ventricular systolic pressure is normal at < 35 mmHg. The pulmonic valve was not well visualized. There is no pericardial effusion. CONCLUSIONS -------- 1. Pt has breast cancer and expanders in. 2. LV size, wall thickness and systolic function are normal, with an EF greater than 55%. 3. The left ventricular size is normal. 4. The right ventricle is normal in size. 5. The left atrial size is normal. 6. The right atrial size is normal. 7. The aortic valve is trileaflet, and appears structurally normal. No aortic stenosis or regurgitati on. 8. There is trace mitral regurgitation. 9. Mild tricuspid regurgitation present. 10. The pulmonic valve was not well visualized. 11. There is no pericardial effusion. SUCKER MACHINE OPERATOR: Joselyn Castro RDCS
== END | disposition home or self-care (01) ==
LOC: RADECHMAIN 13:04
PROVIDERS: ATTEND Internal Medicine Hematology & Oncology
DX: Z01.812 Encounter for preprocedural laboratory examination (principal); I34.0 Nonrheumatic mitral (valve) insufficiency; I07.1 Rheumatic tricuspid insufficiency
CPT/HCPCS: 93306

== ENCOUNTER 2021-12-10 07:18 | Day surgery (SDC) | payer MEDICAID, BC ==
[2021-12-04 14:26] VITALS: BMI 21.9
[~2021-12-10 07:18] MED LIST changes: -ACETAMINOPHEN TAB 500 MG TAB PO PRN; -HEPARIN SODIUM,PORCINE/PF 5,000 UNIT/0.5 ML SYRINGE SQ PRN; +LIDOCAINE 1% (10MG/ML) FOR IV START INTRADERMA PRN; +MIDAZOLAM 2 MG/2 ML VIAL IV PRN
[2021-12-10 08:02] LABS: Basophils % (A) 0 %; Eosinophils # (A) 0.2 k/uL (0-0.7); Eosinophils % (A) 4 %; HCT 36.7 % (34.0-46.0); HGB 12.2 gm/dL (11.4-16.0); Lymphocytes # (A) 1.6 k/uL (1.0-4.8); Lymphocytes % (A) 34 %; MCH 37.1 pg (25.0-35.0); MCHC 33.1 g/dL (31.0-37.0); Macrocytosis Marked; Mean Platelet Volume 7.7; Monocytes # (A) 0.2 k/uL (0-1.0); Monocytes % (A) 5 %; Neutrophils # (A) 2.6 k/uL (1.3-7.7); Neutrophils % (A) 56 %; Platelet Count 216 k/uL (150-450); RBC 3.28 m/uL (3.80-5.40); RDW 14.1 % (11.5-15.5); WBC 4.6 k/uL (3.8-10.6)
[2021-12-10] MEDS ORDERED: GLYCOPYRROLATE 0.2 MG/ML 2 ML VIAL ONE (08:44)
[2021-12-10] MEDS ORDERED: PROPOFOL 10 MG/ML 20 ML VIAL IV ONE (08:44)
[2021-12-10] MEDS ORDERED: ROCURONIUM 10 MG/ML (5 ML VIAL) IV ONE (08:44)
[2021-12-10] MEDS ORDERED: SUCCINYLCHOLINE CHLORIDE 100 MG/5 ML SYR IV ONE (08:44)
[2021-12-10] MEDS ORDERED: fentaNYL (PF) 50 MCG/ML 2 ML AMP ONE (08:44)
[2021-12-10] MEDS ORDERED: NEOSTIGMINE 1 MG/ML 10 ML VIAL ONE (08:44)
[2021-12-10] MEDS ORDERED: MIDAZOLAM 2 MG/2 ML VIAL ONE (08:44)
[2021-12-10] MEDS ORDERED: LIDOCAINE 1% INJ 10MG/ML (20 ML MDV) ONE (08:44)
[2021-12-10] MEDS ORDERED: LACTATED RINGERS 1,000 ML IV ONE (10:24)
[2021-12-10 11:02] VITALS: TEMP 97
[2021-12-10] MEDS ORDERED: HYDROcodone/APAP 5-325MG 1 EACH TAB ONE (11:32)
[2021-12-10] MEDS ORDERED: HYDROcodone/APAP 5-325MG 1 EACH TAB PO ONE (11:37)
[2021-12-10 11:45] VITALS: RESP 16
[2021-12-10 11:57] VITALS: BP 119/81; PULSE 61
--- NOTE | 2021-12-10 20:42 | OP ---
OPERATIVE REPORT DATE OF SURGERY: 12/10/2021 PREOPERATIVE DIAGNOSIS: 1. Acquired loss, right and left breast. 2. Personal history of breast cancer. 3. Personal history of bilateral mastectomy. 4. Acquired deformity right and left reconstructed breast. 5. Acquired loss right and left breast including inframammary fold. POSTOPERATIVE DIAGNOSIS: 1. Acquired loss right and left breast. 2. Personal history of breast cancer. 3. Personal history of bilateral mastectomy. 4. Acquired deformity of right and left reconstructed breast. 5. Acquired loss right and left breast inframammary fold. OPERATIVE PROCEDURES: 1. Replace right breast tissue robotics systems engineer with silicone breast implant for right breast reconstruction. 2. Revision right reconstructed breast. 3. Replace left breast tissue robotics systems engineer with silicone breast implant for left breast reconstruction. 4. Revision left reconstructed breast. 5. Reconstruction of right and left inframammary fold via local advancement flaps, 72 square cm. 6. Implantation of reconstructive graft for right and left breast reconstruction. OPERATIVE INDICATIONS: The patient is a 51-year-old female who has undergone bilateral mastectomy procedures for treatment of left breast cancer. She chose to proceed with immediate reconstruction via tissue robotics systems engineer technique. Expanders were placed immediately after mastectomy and she completed subsequent outpatient expansion and chemotherapy. She is returning to surgery today for replacement of her expanders with silicone breast implants, revision of acquired deformities from mastectomy and expansion process, reconstruction right and left breast and also reconstruction right and left inframammary folds that have been effaced by the expansion process. The patient understands that there are potential risks and complications to the surgery, including but not limited to hematoma, seroma, wound healing problems, postoperative infection, among others. She has requested I perform the surgery. OPERATIVE PROCEDURE SUMMARY: The patient was seen in the preoperative area. Markings were made, procedure reviewed, all questions answered. She was then transported to the operating room, where she was placed in supine position. Following induction of general endotracheal anesthesia, the patient was prepped and draped in the usual fashion. The patient's right-sided mastectomy procedure was nipple-sparing mastectomy and the incision was located in the inferior one half of the lower pole oriented transversely. This site was marked for incision for today's procedure as well. The left side was a traditional skin-sparing mastectomy and incision was marked in a transverse fashion over the central reconstructed breast mound. Remaining on the right side, incision was made with a 10 blade scalpel, dividing the skin in full-thickness fashion followed by use of cauterization to divide subcutaneous tissue and then identifying the upper outer muscle flap layer. Skin and subcutaneous tissue flaps were then elevated off this layer. Extensive dissection was required to release contour irregularities mentioned previously. Once this was completed, incision was then made in a transverse fashion through the muscle flap layer offsetting from the skin incision, exposing the robotics systems engineer. The robotics systems engineer was removed intact. The cavity appeared normal, with some serous fluid; no granulation tissue, no exudates. The cavity was irrigated and packed with moistened saline laparotomy pads. Attention was turned toward the left side, and following the marking placed for incision, the skin was divided in full-thickness fashion with a 10 blade scalpel, then cautery used to divide subcutaneous tissue, identifying the underlying muscle flap layer. Skin and subcutaneous tissue flaps were then elevated off this layer. Extensive dissection was required due to the contour irregularities and deformities from prior mastectomy and expansion process. Once this was completed, incision was made transverse through the muscle flap tissue offsetting from the skin level incision, exposing the robotics systems engineer. The robotics systems engineer was removed intact. Again the cavity had serous fluid but no granulation tissue and no exudates. The cavity was irrigated. Remaining on the left side, capsulotomy incision was made where the capsule joined the chest wall and additional dissection was required medially and inferomedially to release scar tissue that had formed tightly here to establish a more even contour on the skin surface. This was then completed on the right side, again making a complete capsulotomy incision with cauterization and then releasing tighter structures from scar tissue located medially and medially inferiorly released with cautery. Multiple cruciate incisions were then made through the capsules on the right and left sides to release tightness. Hemostasis was maintained with cautery. Through the inframammary portion of the capsulotomy incision, skin and subcutaneous tissue flaps were elevated on the right and left sides, each flap measuring 18 cm transversely, 2 cm vertically. This tissue was elevated with cauterization and used to reconstruct the inframammary fold, securing the right and left inframammary folds along rib periosteal tissue in several discrete sites using 2-0 and 0 Vicryl sutures. With this completed, irrigation was performed. Hemostasis was excellent. Temporary breast implant sizers were opened on the field. Multiple sizes were tried. Ultimately, with the patient in a seated-up position, the 615 mL sizer appeared optimal. The patient was returned to supine position. Some internal capsular sutures were placed in the lateral aspect of the right and left sides using 0 interrupted and short running 0 Vicryl sutures to slightly narrow the lateral aspect on each side. Temporary implant sizers were then reinserted. This optimized reconstruction. Temporary implant sizers were now removed, cavities irrigated, gloves changed and breast implants were opened on the field. Both implants measured 650 mL and were Natrelle Inspira soft touch breast implants, model line from [employer], model SSX-615. The right-sided serial number was [id number] and the left-sided serial number was [id number]. Devices were only handled by the surgeon. They were irrigated with saline. Using a Cox Funnel, the breast implants were inserted into the right and left reconstructed breast pockets and then examined for optimal placement, which was determined under direct vision. The muscle flap layers could not be closed over the implants without creasing them; therefore SurgiMend reconstructive graft was opened on the field. The SurgiMend measured 10 x 15 cm and was revitalized with room-temperature saline and divided into two equal portions. The SurgiMend was then used to span the gap where the muscle flap could not be completely approximated on the right and left side. The SurgiMend after revitalized was inserted in reconstructed cavities deep to the muscle flap tissue but spanning the gap areas described and sutured in place using interrupted 3-0 Vicryl suture on each side. Complete coverage of each implant was now obtained. The skin incision on each side was closed, approximating deep dermis using inverted interrupted 4-0 Monocryl and completing the superficial dermal and epidermal closure with running 5-0 Prolene. Surgical field was cleansed with saline and dried, postoperative bandages placed using Kerlix squares secured with 3M Medipore tape and positioned with size 3 white mammary support with additional ABD padding through lateral aspects. The patient was then awakened from her anesthetic, extubated in the operating room and transferred to the recovery room in good condition with stable vital signs. Estimated blood loss was 30 mL. There were no complications. MMODL / IJN: [id number] /
== END 2021-12-10 12:34 | disposition home or self-care (01) ==
LOC: OR 07:18
PROVIDERS: ATTEND Plastic Surgery
DX: N65.0 Deformity of reconstructed breast (principal); Z90.13 Acquired absence of bilateral breasts and nipples; Z85.3 Personal history of malignant neoplasm of breast; Z80.3 Family history of malignant neoplasm of breast; Z98.890 Other specified postprocedural states
CPT/HCPCS: 81025; 84132; 85025; 14301; 14302; 11970; 19380; 15777; C1789; C1763; J2250; J1100; J2710; J0690; J2405; J2001; J3010; J0330; J2704

== ENCOUNTER → 2022-01-27 | Outpatient (CLI) | payer MEDICAID, BC ==
--- NOTE | 2022-01-28 07:18 | ECHOF ---
Referral Reason:Z01.818 [facility] MEASUREMENTS -------- HEIGHT: 170.2 cm WEIGHT: 61.2 kg BP: RVIDd: 2.8 cm (< 3.3) IVSd: 0.9 cm (0.6 - 1.1) LVIDd: 4.4 cm (3.9 - 5.3) LVPWd: 1.1 cm (0.6 - 1.1) IVSs: 1.2 cm LVIDs: 3.0 cm LVPWs: 1.5 cm LA Diam: 3.1 cm (2.7 - 3.8) Ao Diam: 3.0 cm (2.0 - 3.7) AV Cusp: 1.9 cm (1.5 - 2.6) LA Diam: 3.2 cm (2.7 - 3.8) MV EXCURSION: 20.130 mm (> 18.000) MV EF SLOPE: 100 mm/s (70 - 150) EPSS: 0.4 cm MV E Percy: 0.72 m/s MV DecT: 152 ms MV A Percy: 0.50 m/s MV E/A Ratio: 1.44 RAP: 5.00 mmHg RVSP: 29.86 mmHg FINDINGS -------- Sinus rhythm. This was a technically good study. LV size, wall thickness and systolic function are normal, with an EF greater than 55%. The left rosendo tricular size is normal. The right ventricle is normal in size. Normal LA size by volume 22+/-6 ml/m2. The right atrial size is normal. The aortic valve is trileaflet, and appears structurally normal. No aortic stenosis or regurgitation. Mild mitral regurgitation is present. Mild tricuspid regurgitation present. Right ventricular systolic pressure is normal at < 35 mmHg. There is no pulmonic regurgitation present. There is no pericardial effusion. CONCLUSIONS -------- 1. LV size, wall thickness and systolic function are normal, with an EF greater than 55%. 2. The left ventricular size is normal. 3. The right ventricle is normal in size. 4. Normal LA size by volume 22+/-6 ml/m2. 5. The right atrial size is normal. 6. The aortic valve is trileaflet, and appears structurally normal. No aortic stenosis or regurgitati on. 7. Mild mitral regurgitation is present. 8. Mild tricuspid regurgitation present. 9. There is no pericardial effusion. HUMAN RESOURCES INTERN: Joselyn Castro RDCS
== END | disposition home or self-care (01) ==
LOC: RADECHMAIN 11:53
PROVIDERS: ATTEND Internal Medicine Hematology & Oncology
DX: Z01.818 Encounter for other preprocedural examination (principal); I34.0 Nonrheumatic mitral (valve) insufficiency; I07.1 Rheumatic tricuspid insufficiency
CPT/HCPCS: 93306

== ENCOUNTER → 2022-04-30 | Outpatient (CLI) | payer MEDICAID, BC ==
--- NOTE | 2022-05-01 10:12 | CA ---
Transthoracic Echo Report Name: Samanta Bobo Age: 51 Gender: F : 1970 Exam Date: 04/30/2022 11:36 Exam Location: [place] [facility] Ht (in): 67 Wt (lb): 135 Ordering Physician: Anuel Dominguez MD Attending/Referring Phys: Kath Stapleton [facility] Chief Financial Officer Joselyn Castro RDCS Procedure CPT: Indications: Z01.818 Preprocedural Cardiac Hx: Technical Quality: Good Contrast 1: N/A Total Dose (mL): Contrast 2: Total Dose (mL): MEASUREMENTS (Male / Female) Normal Values 2D ECHO LV Diastolic Diameter PLAX 4.6 cm 4.2 - 5.9 / 3.9 - 5.3 cm LV Systolic Diameter PLAX 3.3 cm IVS Diastolic Thickness 0.8 cm 0.6 - 1.0 / 0.6 - 0.9 cm LVPW Diastolic Thickness 1.5 cm 0.6 - 1.0 / 0.6 - 0.9 cm LV Relative Wall Thickness 0.5 RV Internal Dim ED PLAX 2.1 cm LA Systolic Diameter LX 2.9 cm 3.0 - 4.0 / 2.7 - 3.8 cm LA Volume 50.4 cm??? 18 - 58 / 22 - 52 cm??? M-MODE Aortic Root Diameter MM 3.6 cm MV E Point Septal Separation 0.3 cm AV Cusp Separation MM 1.7 cm DOPPLER MV Area PHT 4.5 cm??? Mitral E Point Velocity 66.0 cm/s Mitral A Point Velocity 64.4 cm/s Mitral E to A Ratio 1.0 MV Deceleration Time 167.1 ms MV E' Velocity 11.8 cm/s Mitral E to MV E' Ratio 5.6 FINDINGS Left Ventricle Normal Left ventricular size, wall thickness, systolic function with no obvious regional wall motion abnormalities. Normal Left ventricular diastolic filling pattern. Right Ventricle Normal right ventricular size and function. Right Atrium Normal right atrial size. Left Atrium Left atrial size at the upper limits of normal. Mitral Valve Structurally normal mitral valve. Mild mitral regurgitation. Aortic Valve Trileaflet aortic valve. Tricuspid Valve Structurally normal tricuspid valve. Trace to mild tricuspid regurgitation. Pulmonic Valve Structurally normal pulmonic valve. Pericardium Echo free space anterior to the right ventricle likely represents a fat pad. Aorta Normal size aortic root and proximal ascending aorta. CONCLUSIONS #1. Normal left ventricular size and systolic function. #2. Mild mitral, trace to mild tricuspid regurgitation Previewed by: Dr. Drake Shipman MD (Electronically Signed) Final Date: 01 May 2022 10:12
== END | disposition home or self-care (01) ==
LOC: RADECHMAIN 11:28
PROVIDERS: ATTEND Internal Medicine Hematology & Oncology
DX: I07.1 Rheumatic tricuspid insufficiency (principal)
CPT/HCPCS: 93306

== ENCOUNTER 2022-07-22 09:31 | Day surgery (SDC) | payer MEDICAID, BC ==
[2022-07-18 11:15] VITALS: BMI 21.1
[~2022-07-22 09:31] MED LIST changes: -DEXAMETHASONE SOD PHOSPHATE 4 MG/ML 1 ML VIAL IV ONE; -HYDROmorphone 0.5 MG/0.5 ML SYRINGE IVP PRN; -LIDOCAINE 1% (10MG/ML) FOR IV START INTRADERMA PRN; -MIDAZOLAM 2 MG/2 ML VIAL IV PRN; -ONDANSETRON 4 MG/2 ML VIAL IVP ONE; -Pre Op ABX Message 1 EACH MISC MISCELLANE ONE
[2022-07-22 10:02] VITALS: TEMP 97
[2022-07-22] MEDS ORDERED: PROPOFOL 10 MG/ML 20 ML VIAL IV ONE (10:19)
--- NOTE | 2022-07-22 10:26 | P.GSHP ---
History of Present Illness H&P Date: 07/22/22 Chief Complaint: Colon cancer screening 52-year-old female here today for colonoscopy. Patient is a history of breast cancer. No previous colonoscopy. No bowel complaints. No family history of colon cancer. Past Medical History Past Medical History: Cancer Additional Past Medical History / Comment(s): Breast Cancer, low potassium History of Any Multi-Drug Resistant Organisms: None Reported Past Surgical History: Breast Surgery, Orthopedic Surgery Additional Past Surgical History / Comment(s): Left elbow surgery, bilateral mas tectomy, port inserted Past Anesthesia/Blood Transfusion Reactions: No Reported Reaction Past Psychological History: No Psychological Hx Reported Smoking Status: Former smoker Past Alcohol Use History: Occasional Additional Past Alcohol Use History / Comment(s): quit smoking 2014, smoked for 15-20 yrs Past Drug Use History: None Reported - Past Family History Mother Family Medical History: No Reported History Medications and Allergies Home Medications Medication Instructions Recorded Confirmed Type No Known Home Medications 07/18/22 07/22/22 History Allergies Allergy/AdvReac Type Severity Reaction Status Date / Time bee pollen Allergy Anaphylaxis Verified 07/22/22 09:55 Surgical - Exam Vital Signs Temp Pulse Resp BP Pulse Ox 97 F L 58 L 16 118/56 100 07/22/22 09:55 07/22/22 09:55 07/22/22 09:55 07/22/22 09:55 07/22/22 09:55 Physical exam: General: Well-developed, well-nourished HEENT: Normocephalic, sclerae nonicteric Abdomen: Nontender, nondistended Extremities: No edema Neuro: Alert and oriented Assessment and Plan (1) Colon cancer screening Narrative/Plan: Will proceed with colonoscopy at this time. Current Visit: Yes Status: Acute Code(s): Z12.11 - ENCOUNTER FOR SCREENING FOR MALIGNANT NEOPLASM OF COLON SNOMED Code(s): 512993193
--- NOTE | 2022-07-22 10:40 | P.PCN ---
Date of Procedure: 07/22/22 Procedure(s) Performed: PREOPERATIVE DIAGNOSIS: Colon cancer screening POSTOPERATIVE DIAGNOSIS: Normal exam PROCEDURE: Colonoscopy ANESTHESIA: MAC SURGEON: Justus Luo M.D. SPECIMENS: None ENDOSCOPIC PROCEDURE: The patient was placed on the endoscopy table in the left decubitus position. The Olympus colonoscope was inserted into the anus and passed under direct visualization to the base of the cecum. The appendiceal orifice was visualized. From that point the scope was slowly withdrawn inspecti ng all surfaces carefully. There were no neoplastic inflammatory or polypoid lesions throughout the cecum, ascending, transverse, descending, sigmoid and rectum. There was no visible diverticulosis noted. Digital rectal examination was normal. The patient was taken to the recovery room in stable condition per anesthesia guidelines. RECOMMENDATIONS: Resume diet. Follow-up colonoscopy 5-10 years.
[2022-07-22 10:56] VITALS: BP 92/50; PULSE 61; RESP 14
== END 2022-07-22 11:22 | disposition home or self-care (01) ==
LOC: ORWHC2ENDO 09:31
PROVIDERS: ATTEND Surgery
DX: Z12.11 Encounter for screening for malignant neoplasm of colon (principal); Z85.3 Personal history of malignant neoplasm of breast; Z47.89 Encounter for other orthopedic aftercare; Z96.621 Presence of right artificial elbow joint; Z90.13 Acquired absence of bilateral breasts and nipples; Z86.59 Personal history of other mental and behavioral disorders; Z87.891 Personal history of nicotine dependence
CPT/HCPCS: 45378; J2704

== ENCOUNTER 2022-10-10 13:43 | Day surgery (SDC) | payer MEDICAID, BC ==
[~2022-10-10 13:43] MED LIST changes: +ACETAMINOPHEN TAB 500 MG TAB PO PRN; +DEXAMETHASONE SOD PHOSPHATE 4 MG/ML 1 ML VIAL IV ONE; +HEPARIN SODIUM,PORCINE/PF 5,000 UNIT/0.5 ML SYRINGE SQ PRN; +HYDROmorphone 0.5 MG/0.5 ML SYRINGE IVP PRN; +MIDAZOLAM 2 MG/2 ML VIAL IV PRN; +ONDANSETRON 4 MG/2 ML VIAL IVP ONE; +SCOPOLAMINE 1 MG/72 HR PATCH TRANSDERM ONE
--- NOTE | 2022-10-10 13:58 | P.GSHP ---
History of Present Illness H&P Date: 10/10/22 Chief Complaint: Left breast cancer 52-year-old female with history of left breast cancer. Patient here today for Port-A-Cath removal. Apparently not utilizing an any longer at this time. She also was having some issues with her implants. Plastic surgery has plans for pr osthetic removal. Past Medical History Past Medical History: Cancer Additional Past Medical History / Comment(s): Breast Cancer(chemo finished 11/13/21), had some issue with elevated BP at time of dx of breast cancer but states now resolved, low potassium, all have resolved at this time 09/2022 History of Any Multi-Drug Resistant Organisms: None Reported Past Surgical History: Breast Surgery, Orthopedic Surgery Additional Past Surgical History / Comment(s): Left elbow surgery, bilateral mastectomy, port inserted Past Anesthesia/Blood Transfusion Reactions: No Reported Reaction Smoking Status: Former smoker - Past Family History Mother Family Medical History: No Reported History Medications and Allergies Home Medications Medication Instructions Recorded Confirmed Type Ciprofloxacin HCl [Cipro] 1 tab PO BID 08/06/22 10/09/22 History Allergies Allergy/AdvReac Type Severity Reaction Status Date / Time bee pollen Allergy Anaphylaxis Verified 10/09/22 08:55 Surgical - Exam Physical exam: General: Well-developed, well-nourished HEENT: Normocephalic, sclerae nonicteric Abdomen: Nontender, nondistended Extremities: No edema Neuro: Alert and oriented Assessment and Plan (1) Cancer of left breast Narrative/Plan: Will proceed with Port-A-Cath removal at this time. Current Visit: No Status: Acute Code(s): C50.912 - MALIGNANT NEOPLASM OF UNSPECIFIED SITE OF LEFT FEMALE BREAST SNOMED Code(s): 840562142
[2022-10-10] MEDS ORDERED: LIDOCAINE 1% (10MG/ML) FOR IV START INTRADERMA ONE (14:32)
[2022-10-10] MEDS ORDERED: SUCCINYLCHOLINE CHLORIDE 200 MG/10 ML VIAL IV ONE (15:58)
[2022-10-10] MEDS ORDERED: fentaNYL (PF) 50 MCG/ML 2 ML AMP ONE (15:58)
[2022-10-10] MEDS ORDERED: LIDOCAINE 2% INJ 20 MG/ML (2 ML VIAL) ONE (15:58)
[2022-10-10] MEDS ORDERED: KETOROLAC 15 MG/ML 1 ML VIAL ONE (15:58)
[2022-10-10] MEDS ORDERED: PROPOFOL 10 MG/ML 20 ML VIAL IV ONE (15:58)
[2022-10-10] MEDS ORDERED: MIDAZOLAM 2 MG/2 ML VIAL ONE (15:58)
[2022-10-10] MEDS ORDERED: NALOXONE 0.4 MG/ML 1 ML VIAL IV PRN (17:10)
--- NOTE | 2022-10-10 17:14 | P.OP ---
Date of Procedure: 10/10/22 Procedure(s) Performed: PREOPERATIVE DIAGNOSIS: Breast cancer POSTOPERATIVE DIAGNOSIS: Same PROCEDURE: Port-A-Cath removal SURGEON: Puja EBL: Minimal ANESTHESIA: General COMPLICATIONS: None OPERATIVE PROCEDURE: Patient first underwent prosthetic removal by plastic surgery. That surgery was completed with dressing in place. A new set up was utilized and the right infraclavicular location was prepped and draped sterilely. The skin was localized with Marcaine solution. The previous incision was re-incised using a scalpel. The port was easily excised using accommodation of blunt dissection sharp dissection and electrocautery. The subcutaneous tissues were reapproximated using 3-0 Vicryl sutures. The skin was reapproximated using 4-0 Monocryl sutures. Skin glue was then applied. DISPOSITION: Stable to recovery room
[2022-10-10 17:27] VITALS: TEMP 96.8
[2022-10-10 17:29] VITALS: RESP 16
[2022-10-10 18:21] VITALS: BP 115/73; PULSE 63
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
== END 2022-10-10 18:40 | disposition home or self-care (01) ==
LOC: OR 13:43
PROVIDERS: ATTEND Surgery
DX: Z45.2 Encounter for adjustment and management of vascular access device (principal); C50.912 Malignant neoplasm of unspecified site of left female breast; Z85.3 Personal history of malignant neoplasm of breast; Z87.891 Personal history of nicotine dependence; Z91.030 Bee allergy status
CPT/HCPCS: 87070; 87205; 87075; 36590; J2250; J0330; J1100; J0690; J2405; J3010; J1885; J2704; J2001

== ENCOUNTER → 2022-12-22 | Outpatient (CLI) | payer OTHER ==
--- NOTE | 2022-12-22 11:49 | XR ---
EXAMINATION TYPE: XR shoulder complete LT DATE OF EXAM: 12/22/2022 COMPARISON: NONE HISTORY: Pain TECHNIQUE: Three views are submitted. FINDINGS: The osseous structures are intact. There is no acute fracture or dislocation. The AC joint is maint ained. Surgical clips in the axilla. IMPRESSION: 1. No acute process.
== END | disposition home or self-care (01) ==
LOC: RADXRMAIN 11:28
PROVIDERS: ATTEND Emergency Medicine
DX: S46.012A Strain of muscle(s) and tendon(s) of the rotator cuff of left shoulder, initial encounter (principal)

== ENCOUNTER → 2022-12-24 | Outpatient (CLI) | payer OTHER ==
--- NOTE | 2022-12-24 19:24 | MR ---
EXAMINATION TYPE: MR shoulder LT wo con DATE OF EXAM: 12/24/2022 COMPARISON: Left shoulder x-ray December 22, 2022 HISTORY: Left shoulder pain and limited movement since 12-17-22 due to catching patient from falling. Strain of rotator cuff per order. TECHNIQUE: Multiplanar, multisequence imaging of the left shoulder is performed without contrast. FINDINGS: Rotator Cuff: Focal partial tear articular surface distal supraspinatus tendon measuring 7 mm AP diam eter sagittal image 8 x 4 mm transversely coronal image 19. The infraspinatus tendon intact. Rotator cuff muscle bulk preserved. Acromioclavicular Joint: Mild to moderate narrowing and superior capsular hypertrophy. No significant spurring. Underlying fat plane is maintained. Glenohumeral Joint: Small to moderate-size joint effusion extending superiorly and inferiorly. No sig nificant spurring or narrowing. Labrum: The labrum appears grossly intact given limitation of non-arthrogram study. Biceps Tendon: The long head of biceps is in normal location within bicipital groove. Bone marrow signal: A few tiny subchondral cysts involving the superior lateral aspect of the humeral head. Other: No additional significant abnormality is appreciated. IMPRESSION: Focal tearing of the supraspinatus tendon at the articular surface. Mild to moderate dege nerative changes as detailed above.
== END | disposition home or self-care (01) ==
LOC: RADMRIMAIN 18:22
PROVIDERS: ATTEND Emergency Medicine
DX: M19.012 Primary osteoarthritis, left shoulder (principal); S46.012A Strain of muscle(s) and tendon(s) of the rotator cuff of left shoulder, initial encounter

== ENCOUNTER → 2023-04-01 | Outpatient (CLI) | payer MEDICAID ==
--- NOTE | 2023-04-02 11:24 | US ---
EXAMINATION TYPE: US axilla LT DATE OF EXAM: 04/01/2023 COMPARISON: Correlation MRI 04/17/2021 and mammogram 03/29/2021 CLINICAL INDICATION: Female, 52 years old with history of [id number], [id number], I10; palpable inferior axilla TECHNIQUE: Targeted ultrasound left axilla with particular attention to the patient's palpable sites. FINDINGS: Soft tissue scan of left axilla at palpable produces 3 lymph nodes, largest = 1.1 x 0.6 x 1.0cm. While these are small in size, they are rounded in configuration with effacement of the fatty hilum. Tissue sampling recommended. IMPRESSION: 3 small lymph nodes in the left axilla corresponding to the patient's palpable site. Whi le these are small in size, they have a rounded morphology and have lost their fatty hilum. Findings may be on a reactive basis. Given patient's oncologic history, ultrasound-guided biopsy is recommende d.
== END | disposition home or self-care (01) ==
LOC: RADUSWWP 09:07
PROVIDERS: ATTEND Internal Medicine Hematology & Oncology
DX: C50.812 Malignant neoplasm of overlapping sites of left female breast (principal); F41.9 Anxiety disorder, unspecified; I10 Essential (primary) hypertension

== ENCOUNTER 2023-04-08 13:02 | Day surgery (SDC) | payer MEDICAID ==
[2023-04-08 14:30] VITALS: BP 121/72; PULSE 78; RESP 18
--- NOTE | 2023-04-08 15:10 | US ---
ULTRASOUND GUIDED CORE BIOPSY LEFT AXILLA LYMPH NODE: CLINICAL HISTORY: Left axilla lymph node and history of breast cancer FINDINGS: The procedure was explained to the patient. The risks, complications, benefits and alternatives were discussed and any questions were answered. Informed consent was obtained. Patient was placed supin e on the ultrasound table and prepped and draped in the usual sterile fashion. Utilizing a 18 gauge needle, five passes were made into the left axilla lymph node. Patient was stable throughout the procedure. Pathology is pending. All elements of maximal barrier and sterile technique were utilized. IMPRESSION: 1. Successful ultrasound guided core biopsy left axilla lymph node.
== END 2023-04-08 13:40 | disposition home or self-care (01) ==
LOC: RADPROMAIN 13:02
PROVIDERS: ATTEND Internal Medicine Hematology & Oncology
DX: C50.812 Malignant neoplasm of overlapping sites of left female breast (principal)
CPT/HCPCS: 38505; 76942; 88305; 88341; 88342

== ENCOUNTER → 2023-04-17 | Outpatient (CLI) | payer MEDICAID ==
--- NOTE | 2023-04-18 07:44 | PE ---
EXAMINATION TYPE: PET CT fusion skull to thigh DATE OF EXAM: 04/17/2023 COMPARISON: NONE HISTORY: History of left-sided breast cancer diagnosed and treated 2 years ago with recurrent adenopa thy in the left chest wall. TECHNIQUE: Following the intravenous administration of 11.2 mCi of F-18 FDG, whole body images are p erformed from the skull base to the midthigh. Images are reviewed on the computer in the coronal, ax ial, and sagittal planes. Reconstructed rotating images are created on independent workstation and r eviewed on the computer. A localization and attenuation correction CT is performed in conjunction w ith the PET scan. Blood glucose level equals 85. SCAN: Subsequent Scan FINDINGS: SKULL BASE AND NECK: No areas of abnormal hypermetabolic uptake. CHEST, MEDIASTINUM, AND HILAR REGION: Bilateral breasts are absent. Surgical clips in the right-sided chest wall are seen. There is left breast implant noted. Adjacent to the left breast implant there a re 3 new subcentimeter mildly hypermetabolic masses or lymph nodes, one posteriorly axial image 81 an d 92 and one anteriorly axial image 103. They have mild hypermetabolic uptake with maximum SUV of 1.8 1 on axial image 103. There are additional tiny subcentimeter lymph nodes without definitive abnormal hypermetabolic uptake. Surgical clips in the left axilla are present. No abnormal hypermetabolic uptake in the remainder of the thorax. ABDOMEN AND PELVIS: Normal excretion. No abnormal hypermetabolic uptake in the abdomen or pelvis. OSSEOUS STRUCTURES: No abnormal hypermetabolic uptake. OTHER CT: No significant incidental findings are present. IMPRESSION: Corresponding to ultrasound there are 3 minimally hypermetabolic subcentimeter lymph node s surrounding the left breast implant with additional ametabolic subcentimeter lymph nodes consistent with local neoplastic recurrence as proven on recent biopsy. No distal metastatic disease is present .
== END | disposition home or self-care (01) ==
LOC: RADPETMAIN 13:01
PROVIDERS: ATTEND Internal Medicine Hematology & Oncology
DX: C50.812 Malignant neoplasm of overlapping sites of left female breast (principal); R59.0 Localized enlarged lymph nodes; Z98.82 Breast implant status
CPT/HCPCS: 78815; A9552

== ENCOUNTER → 2023-05-12 | Outpatient (CLI) | payer OTHER ==
[2023-05-12 08:52] LABS: INR 0.9 (<1.2)
[2023-05-12 14:42] LABS: Basophils # (A) 0.03 X 10*3/uL (0.00-0.10); Basophils % (A) 0.8 %; Eosinophils # (A) 0.14 X 10*3/uL (0.04-0.35); Eosinophils % (A) 3.9 %; HCT 38.4 % (37.2-46.3); HGB 12.7 d/dL (12.0-15.0); Immature Grans, Automated 0 %; Lymphocytes # (A) 1.62 X 10*3/uL (0.90-5.00); Lymphocytes % (A) 45.4 %; MCH 30.9 pg (27.0-32.0); MCHC 33.1 d/dL (32.0-37.0); MCV 93.4 FL (80.0-97.0); Mean Platelet Volume 9.9 FL (9.5-12.2); Monocytes # (A) 0.26 X 10*3/uL (0.20-1.00); Monocytes % (A) 7.3 %; NRBC Per 100 WBC 0 X 10*3/uL (0.00-0.01); Neutrophils # (A) 1.52 X 10*3/uL (1.80-7.70); Neutrophils % (A) 42.6 %; Platelet Count 186 X 10*3/uL (140-440); RBC 4.11 X 10*6/uL (4.10-5.20); RDW 11.9 % (11.5-14.5); WBC 3.57 X 10*3/uL (4.50-10.00)
[2023-05-13 05:21] LABS: ALT 17 U/L (8-44); AST 18 U/L (13-35); Albumin 4.6 d/dL (3.8-4.9); Alkaline Phosphatase 57 U/L (41-126); Blood Urea Nitrogen 10.8 mg/dL (9.0-27.0); Calcium 9.4 mg/dL (8.7-10.3); Chloride 104 mmol/L (96-109); Chol/HDL Ratio 3.03 Ratio; Glucose 89 mg/dL (70-110); LDL Cholesterol,Calculated 119.6 mg/dL (0.0-131.0); Potassium 4.3 mmol/L (3.5-5.5); Sodium 140 mmol/L (135-145); Total Bilirubin 0.3 mg/dL (0.3-1.2); Total Protein 6.6 d/dL (6.2-8.2); VLDL Calculation 12.96 mg/dL (5.00-40.00)
== END | disposition home or self-care (01) ==
LOC: LABWHC1 07:32
PROVIDERS: ATTEND Nurse Practitioner Family
DX: Z01.812 Encounter for preprocedural laboratory examination (principal); E55.9 Vitamin D deficiency, unspecified; R73.01 Impaired fasting glucose
CPT/HCPCS: 36415; 80053; 80061; 82306; 83036; 84443; 85025; 85610

== ENCOUNTER → 2023-05-19 | Outpatient (CLI) | payer MEDICAID, OTHER ==
--- NOTE | 2023-05-20 10:34 | CA ---
Transthoracic Echo Report Name: Samanta Soto Age: 52 Gender: F : 1970 Exam Date: 05/19/2023 10:53 Exam Location: [place] [facility] Ht (in): 67 Wt (lb): 135 Ordering Physician: Anuel Dominguez MD Attending/Referring Phys: Spiral Machine Operator Sheba Shipley RDCS Procedure CPT: Indications: Z01.818 ENCOUNTER FOR OTHER PREPROCEDURAL EXAMINATI Cardiac Hx: Technical Quality: Fair Contrast 1: Total Dose (mL): Contrast 2: Total Dose (mL): MEASUREMENTS (Male / Female) Normal Values 2D ECHO LV Diastolic Diameter PLAX 3.9 cm 4.2 - 5.9 / 3.9 - 5.3 cm LV Systolic Diameter PLAX 2.0 cm IVS Diastolic Thickness 0.9 cm 0.6 - 1.0 / 0.6 - 0.9 cm LVPW Diastolic Thickness 1.1 cm 0.6 - 1.0 / 0.6 - 0.9 cm LV Relative Wall Thickness 0.5 RV Internal Dim ED PLAX 3.0 cm LA Volume 26.0 cm??? 18 - 58 / 22 - 52 cm??? M-MODE Aortic Root Diameter MM 2.6 cm LA Systolic Diameter MM 3.2 cm LA Ao Ratio MM 1.3 AV Cusp Separation MM 2.1 cm DOPPLER AV Peak Velocity 116.0 cm/s AV Peak Gradient 5.4 mmHg AV Mean Velocity 78.1 cm/s AV Mean Gradient 2.8 mmHg AV Velocity Time Integral 22.3 cm LVOT Peak Velocity 104.8 cm/s LVOT Peak Gradient 4.4 mmHg LVOT Velocity Time Integral 22.0 cm MV Area PHT 4.0 cm??? Mitral E Point Velocity 85.5 cm/s Mitral A Point Velocity 71.2 cm/s Mitral E to A Ratio 1.2 MV Deceleration Time 187.5 ms MV E' Velocity 12.1 cm/s Mitral E to MV E' Ratio 7.0 TR Peak Velocity 194.1 cm/s TR Peak Gradient 15.1 mmHg Right Ventricular Systolic Press 20.1 mmHg FINDINGS Left Ventricle Normal Left ventricular size, wall thickness, systolic function with no obvious regional wall motion abnormalities. Normal Left ventricular diastolic filling pattern. Left ventricular ejection fraction is estimated at 55-60 %. Right Ventricle Normal right ventricular size and function. Right ventricular systolic pressure within normal limits. Right Atrium Normal right atrial size. Left Atrium Normal left atrial size. Mitral Valve Structurally normal mitral valve. Trace mitral regurgitation. Aortic Valve Trileaflet aortic valve. No aortic valve stenosis or regurgitation. Tricuspid Valve Structurally normal tricuspid valve. Mild tricuspid regurgitation. Pulmonic Valve Structurally normal pulmonic valve. Pericardium No pericardial effusion. Aorta Normal size aortic root and proximal ascending aorta. CONCLUSIONS Normal LV size and systolic function. No significant abnormality on the Doppler exam. No pericardial effusion. Previewed by: Dr. Azael Horn MD (Electronically Signed) Final Date: 20 May 2023 10:34
== END | disposition home or self-care (01) ==
LOC: RADECHMAIN 10:51
PROVIDERS: ATTEND Internal Medicine Hematology & Oncology
DX: Z01.818 Encounter for other preprocedural examination (principal)
CPT/HCPCS: 93306

== ENCOUNTER 2023-05-28 11:14 | Day surgery (SDC) | payer MEDICAID ==
[2023-05-21 10:51] VITALS: BMI 21.1
[~2023-05-28 11:14] MED LIST changes: -DEXAMETHASONE SOD PHOSPHATE 4 MG/ML 1 ML VIAL IV ONE; +LIDOCAINE 1% (10MG/ML) FOR IV START INTRADERMA PRN; -MIDAZOLAM 2 MG/2 ML VIAL IV PRN; -ONDANSETRON 4 MG/2 ML VIAL IVP ONE; +Pre Op ABX Message 1 EACH MISC MISCELLANE ONE; -SCOPOLAMINE 1 MG/72 HR PATCH TRANSDERM ONE
[2023-05-28] MEDS ORDERED: ONDANSETRON 4 MG/2 ML VIAL ONE (11:50)
--- NOTE | 2023-05-28 11:52 | P.GSHP ---
History of Present Illness H&P Date: 05/28/23 Chief Complaint: Left breast cancer 53-year-old female recently diagnosed with recurrent left breast cancer. Patient here today for Port-A-Cath placement. She had a port previously on the right-hand side. It was removed about a year ago. She would like to place in the same location as possible. Past Medical History Past Medical History: Cancer Additional Past Medical History / Comment(s): Breast Cancer(chemo finished 11/13/21), REOCCURENCE OF BREAST CANCER History of Any Multi-Drug Resistant Organisms: None Reported Past Surgical History: Breast Surgery, Orthopedic Surgery Additional Past Surgical History / Comment(s): Left elbow surgery, bilateral mastectomy with reconstruction ( rt implant out at this time but will be r einserted this year 2022), port inserted and removed Past Anesthesia/Blood Transfusion Reactions: No Reported Reaction Smoking Status: Former smoker - Past Family History Mother Family Medical History: No Reported History Medications and Allergies Home Medications Medication Instructions Recorded Confirmed Type No Known Home Medications 04/06/23 05/21/23 History Allergies Allergy/AdvReac Type Severity Reaction Status Date / Time bee venom protein (honey bee) Allergy Anaphylaxis Verified 05/21/23 10:46 Surgical - Exam Physical exam: General: Well-developed, well-nourished HEENT: Normocephalic, sclerae nonicteric Abdomen: Nontender, nondistended Chest: Previous reconstruction, previous scars noted Extremities: No edema Neuro: Alert and oriented Assessment and Plan (1) Cancer of left breast Narrative/Plan: Will proceed with Port-A-Cath placement at this time. Risks of bleeding, infection, DVT, pneumothorax, catheter malfunction, anesthesia related complications were discussed. The patient understands and wishes to proceed. Current Visit: No Status: Acute Code(s): C50.912 - MALIGNANT NEOPLASM OF UNSPECIFIED SITE OF LEFT FEMALE BREAST SNOMED Code(s): 439922089
[2023-05-28] MEDS ORDERED: DEXAMETHASONE SOD PHOSPHATE 4 MG/ML 1 ML VIAL IVP ONE (12:04)
[2023-05-28] MEDS ORDERED: ePHEDrine 50 MG/ML 1 ML VIAL ONE (12:11)
[2023-05-28] MEDS ORDERED: MIDAZOLAM 2 MG/2 ML VIAL ONE (12:11)
[2023-05-28] MEDS ORDERED: LIDOCAINE 2% INJ 20 MG/ML (2 ML VIAL) ONE (12:11)
[2023-05-28] MEDS ORDERED: fentaNYL (PF) 50 MCG/ML 2 ML AMP ONE (12:11)
[2023-05-28] MEDS ORDERED: PROPOFOL 10 MG/ML 20 ML VIAL IV ONE (12:11)
[2023-05-28] MEDS ORDERED: HEPARIN SODIUM,PORCINE 100 UNIT/ML 5 ML VIAL IV ONE (12:43)
[2023-05-28] MEDS ORDERED: LIDOCAINE 1% INJ 10MG/ML (20 ML MDV) SQ ONE ×2 (12:43)
--- NOTE | 2023-05-28 13:14 | FL ---
Intraoperative/procedural fluoroscopic services were provided. Total fluoroscopy time is 13.8 seconds with a total of 3 submitted images to PACS. Please see the operative/procedural note for further det ails. DAP: 0.3942 mGym2
[2023-05-28] MEDS ORDERED: NALOXONE 0.4 MG/ML 1 ML VIAL IV PRN (13:20)
--- NOTE | 2023-05-28 13:23 | P.OP ---
Date of Procedure: 05/28/23 Procedure(s) Performed: PREOPERATIVE DIAGNOSIS: Left breast cancer POSTOPERATIVE DIAGNOSIS: Same PROCEDURE: Port-A-Cath placement with fluoroscopic and ultrasound guidance SURGEON: Puja EBL: Minimal ANESTHESIA: Sedation COMPLICATIONS: None OPERATIVE PROCEDURE: Patient was brought and placed on the operative table in the supine position. The patient was sedated per anesthesia that time. The chest and neck were prepped and draped in usual sterile fashion. The ultrasound probe was used to identify the location of the right internal jugular vein. The skin was localized with lidocaine. The Seldinger needle was advanced into the IJ under ultrasound guidance. The wire was advanced through the needle under fluoroscopic guidance into the superior vena cava. A port pocket was created in the right infraclavicular location through the same previous incision site. The catheter was tunneled from the wire entrance site to the port pocket. The port was then connected to the catheter. The dilator introducer was threaded over the guidewire. The guidewire and dilator were then removed. The catheter was advanced through the introducer and introducer was then removed. The tip was seen to be in the right atrial junction via fluoroscopy. A picture of the radiograph showing the tip at the radial digital junction was taken. Port was flushed with both saline and a Hep-Lock solution. There was good flow both in and out of the port. The port was sutured in underlying tissues using 3-0 silk sutures. The subcutaneous tissues were reapproximated using 3-0 Vicryl sutures and the skin at both locations using 4-0 Monocryl sutures. Skin glue and sterile dressings then applied. DISPOSITION: Stable to recovery room
[2023-05-28 13:29] VITALS: TEMP 96.8
[2023-05-28 13:36] VITALS: RESP 14
--- NOTE | 2023-05-28 13:48 | XR ---
EXAMINATION TYPE: XR chest 1V confirm line [facility] DATE OF EXAM: 05/28/2023 COMPARISON: NONE HISTORY: Line placement TECHNIQUE: Single frontal view of the chest is obtained. FINDINGS: There is no focal air space opacity, pleural effusion, or pneumothorax seen. The cardiac silhouette size is within normal limits. The osseous structures are intact. Port-A-Cath is seen tip overlying the SVC. Surgical clips overlying the axilla on the left bilateral chest. Stable subsegmen pamela changes at the left lung base. Correlate for prior right mastectomy. IMPRESSION: 1. Mediport catheter appears in good position with no sizable pneumothorax and the tip overlying the SVC. 2. There is a vague nodular appearing density at the left lung base which is nonspecific. Previous P ET scan demonstrated no abnormality in this region. Recommend a follow-up PA and lateral view of the chest. If the finding persists then a CT of the chest would be recommended.
[2023-05-28 14:15] VITALS: BP 119/74; PULSE 70
== END 2023-05-28 14:37 | disposition home health service (06) ==
LOC: OR 11:14
PROVIDERS: ATTEND Surgery
DX: Z45.2 Encounter for adjustment and management of vascular access device (principal); C50.912 Malignant neoplasm of unspecified site of left female breast; Z92.21 Personal history of antineoplastic chemotherapy; Z90.13 Acquired absence of bilateral breasts and nipples; Z87.891 Personal history of nicotine dependence; Z91.030 Bee allergy status
CPT/HCPCS: 36561; 76937; C1788; J2250; J1642; J1100; J0690; J2405; J2001 ×2; J3010; J2704; J1644

== ENCOUNTER → 2023-07-23 | Outpatient (CLI) | payer MEDICAID, BC | END | disposition home or self-care (01) | LOC: LABWHC1 08:10 | PROVIDERS: ATTEND Internal Medicine Hematology & Oncology | DX: C50.812 Malignant neoplasm of overlapping sites of left female breast (principal); I10 Essential (primary) hypertension; F41.9 Anxiety disorder, unspecified; I49.1 Atrial premature depolarization; R12 Heartburn | CPT/HCPCS: 36415; 93005 ==

== ENCOUNTER → 2023-08-05 | Outpatient (CLI) | payer MEDICAID, BC ==
[2023-08-05 11:31] LABS: Basophils % (A) 0 %; Eosinophils # (A) 0.1 k/uL (0-0.7); Eosinophils % (A) 4 %; HGB 12.4 gm/dL (11.4-16.0); Lymphocytes # (A) 1.5 k/uL (1.0-4.8); Lymphocytes % (A) 47 %; MCH 32.8 pg (25.0-35.0); MCHC 34.4 g/dL (31.0-37.0); MCV 95.2 fL (80.0-100.0); Mean Platelet Volume 7.7; Monocytes # (A) 0.2 k/uL (0-1.0); Monocytes % (A) 6 %; Neutrophils # (A) 1.3 k/uL (1.3-7.7); Neutrophils % (A) 41 %; Platelet Count 212 k/uL (150-450); RBC 3.78 m/uL (3.80-5.40); RDW 14.2 % (11.5-15.5); WBC 3.2 k/uL (3.8-10.6)
[2023-08-05 11:40] LABS: African American GFR (CKD) >90 (>60 ml/min/1.73 sqM); Blood Urea Nitrogen 15 mg/dL (7-17); Non-African American GFR(CKD) >90 (>60 ml/min/1.73 sqM)
--- NOTE | 2023-08-05 14:00 | CT ---
EXAMINATION TYPE: CT chest w con CT DLP: 194.9 mGycm, Automated exposure control for dose reduction was used. DATE OF EXAM: 08/05/2023 12:43 PM COMPARISON: 10/31/2021, PET/CT 04/17/2023 CLINICAL INDICATION:Female, 53 years old with history of C50.812 MALIGNANT NEOPLASM OF OVRLP SITES OF ; PHH, ca left breast TECHNIQUE: Multiple axial images were obtained through the chest. Sagittal and coronal reformats were created for review. Contrast used:100ml mL of Isovue 300 with IV Contrast (None if empty) Oral contrast used: (None if empty) FINDINGS: LUNGS/ PLEURA: Right minor fissure nodule is favored represent intrafissural lymph node. Series 4 juan f ge 31. No evidence focal consolidation, pneumothorax or pleural effusion. AIRWAY: Patent and unremarkable. HEART: Size within normal limits. MEDIASTINUM: No gross evidence of adenopathy. VASCULATURE: No aortic aneurysm. Right chest wall [id number] with tip in the caval superior cavoa trial junction. MUSCULOSKELETAL: No acute osseous abnormalities SOFT TISSUES/LYMPH NODES: Surgical clips in the axilla. LOWER NECK: Left breast implant appears intact. Right breast is surgically absent. No evidence for ly mphadenopathy. UPPER ABDOMEN: No significant findings. IMPRESSION: The left breast lymph nodes seen on prior PET/CT are not definitively in the [id number]. What is v isualized in the [id number]-[id number]-wpnd appears not significantly changed from prior. Postsurgical changes to the breasts. Left breast implant appears intact. No obvious lymphadenopathy or new suspicious lesion identified.
== END | disposition home or self-care (01) ==
LOC: RADPROMAIN 10:58
PROVIDERS: ATTEND Internal Medicine Hematology & Oncology
DX: C50.812 Malignant neoplasm of overlapping sites of left female breast (principal); F41.9 Anxiety disorder, unspecified; I10 Essential (primary) hypertension; Z98.82 Breast implant status
CPT/HCPCS: 82565; 84520; 85025; 71260; 36415; J1642; Q9967

== ENCOUNTER → 2023-10-07 | Outpatient (CLI) | payer MEDICAID ==
[2023-10-07 15:43] LABS: INR 0.96 sec (0.93-1.11); Prothrombin Time 10.4 sec (9.9-11.9)
[2023-10-07 16:19] LABS: HCT 40.6 % (37.2-46.3); HGB 12.9 g/dL (12.0-15.0); MCH 31.7 pg (27.0-32.0); MCHC 31.8 g/dL (32.0-37.0); MCV 99.8 FL (80.0-97.0); NRBC Per 100 WBC 0 X 10*3/uL (0.00-0.01); Platelet Count 189 X 10*3/uL (140-440); RBC 4.07 X 10*6/uL (4.10-5.20); RDW 14.5 % (11.5-14.5); WBC 3.29 X 10*3/uL (4.50-10.00)
[2023-10-07 16:25] LABS: ALT 44 U/L (8-44); AST 43 U/L (13-35); Albumin 4.4 g/dL (3.8-4.9); Albumin/Globulin Ratio 1.83 Ratio (1.60-3.17); Alkaline Phosphatase 76 U/L (41-126); BUN/Creat Ratio 12.12 Ratio (12.00-20.00); Blood Urea Nitrogen 9.7 mg/dL (9.0-27.0); Calcium 9.4 mg/dL (8.7-10.3); Carbon Dioxide 25.3 mmol/L (21.6-31.8); Chloride 104 mmol/L (96-109); Chol/HDL Ratio 3.09 Ratio; Globulin 2.4 g/dL (1.6-3.3); Glucose 82 mg/dL (70-110); LDL Cholesterol,Calculated 114.1 mg/dL (0.0-131.0); Potassium 4.5 mmol/L (3.5-5.5); Sodium 140 mmol/L (135-145); Total Bilirubin 0.3 mg/dL (0.3-1.2); Total Protein 6.8 g/dL (6.2-8.2); VLDL Calculation 14.44 mg/dL (5.00-40.00)
== END | disposition home or self-care (01) ==
LOC: LABWHC1 07:15
PROVIDERS: ATTEND Nurse Practitioner Family
DX: C50.912 Malignant neoplasm of unspecified site of left female breast (principal); R73.01 Impaired fasting glucose
CPT/HCPCS: 36415; 80053; 80061; 83036; 85027; 85610

== ENCOUNTER → 2024-01-07 | Outpatient (CLI) | payer BC, MEDICAID ==
--- NOTE | 2023-07-29 18:55 | CA ---
Transthoracic Echo Report Name: Samanta Soto Age: 53 Gender: F : 1970 Exam Date: 07/29/2023 15:56 Exam Location: [place] [facility] Ht (in): 67 Wt (lb): 140 Ordering Physician: Anuel Dominguez MD Attending/Referring Phys: Door To Door Selling Distributor Sheba Shipley RDCS Procedure CPT: Indications: Z01.818 Chemo exposure Cardiac Hx: Technical Quality: Fair Contrast 1: Total Dose (mL): Contrast 2: Total Dose (mL): MEASUREMENTS (Male / Female) Normal Values 2D ECHO LV Diastolic Diameter PLAX 4.7 cm 4.2 - 5.9 / 3.9 - 5.3 cm LV Systolic Diameter PLAX 2.8 cm IVS Diastolic Thickness 0.9 cm 0.6 - 1.0 / 0.6 - 0.9 cm LVPW Diastolic Thickness 0.9 cm 0.6 - 1.0 / 0.6 - 0.9 cm LV Relative Wall Thickness 0.4 LA Volume 23.4 cm??? 18 - 58 / 22 - 52 cm??? M-MODE Aortic Root Diameter MM 2.9 cm LA Systolic Diameter MM 3.5 cm LA Ao Ratio MM 1.2 AV Cusp Separation MM 2.1 cm DOPPLER AV Peak Velocity 113.6 cm/s AV Peak Gradient 5.2 mmHg AV Mean Velocity 77.1 cm/s AV Mean Gradient 2.6 mmHg AV Velocity Time Integral 24.9 cm LVOT Peak Velocity 96.4 cm/s LVOT Peak Gradient 3.7 mmHg LVOT Velocity Time Integral 20.5 cm MV Area PHT 3.6 cm??? Mitral E Point Velocity 79.0 cm/s Mitral A Point Velocity 44.0 cm/s Mitral E to A Ratio 1.8 MV Deceleration Time 212.9 ms MV E' Velocity 12.7 cm/s Mitral E to MV E' Ratio 6.2 TR Peak Velocity 212.4 cm/s TR Peak Gradient 18.1 mmHg Right Ventricular Systolic Press 23.1 mmHg FINDINGS Left Ventricle Normal Left ventricular size, wall thickness, systolic function with no obvious regional wall motion abnormalities. Normal Left ventricular diastolic filling pattern. Left ventricular ejection fraction is estimated at 55-60 %. Right Ventricle Normal right ventricular size and function. Right ventricular systolic pressure within normal limits. Right Atrium Normal right atrial size. Left Atrium Normal left atrial size. Mitral Valve Structurally normal mitral valve. Mild mitral regurgitation. Aortic Valve No aortic valve stenosis or regurgitation. Tricuspid Valve Structurally normal tricuspid valve. Mild tricuspid regurgitation. Pulmonic Valve Structurally normal pulmonic valve. Trace pulmonic regurgitation. Pericardium No pericardial effusion. Aorta Normal size aortic root and proximal ascending aorta. CONCLUSIONS Normal LV size, wall thickness and systolic function. LVEF estimated at 55% No obvious regional wall motion abnormality No significant diastolic dysfunction Global longitudinal strain estimated at -22% (normal) Mild mitral regurgitation No other significant valvular dysfunction. No significant chamber size abnormality No significant difference when compared to prior echo from 2021 Previewed by: Dr Bernabe Mast (Electronically Signed) Final Date: 29 July 2023 18:54
--- NOTE | 2024-01-08 00:19 | CA ---
Transthoracic Echo Report Name: Samanta Soto Age: 53 Gender: F : 1970 Exam Date: 01/07/2024 16:42 Exam Location: [place] [facility] Ht (in): 67 Wt (lb): 140 Ordering Physician: Anuel Dominguez MD Attending/Referring Phys: Operator Weapon Locating Radar Celena Lopez RDCS Procedure CPT: Indications: Z01.818 Chemo exposure Cardiac Hx: Technical Quality: Good Contrast 1: Total Dose (mL): Contrast 2: Total Dose (mL): MEASUREMENTS (Male / Female) Normal Values 2D ECHO LV Diastolic Diameter PLAX 4.6 cm 4.2 - 5.9 / 3.9 - 5.3 cm LV Systolic Diameter PLAX 2.7 cm IVS Diastolic Thickness 0.8 cm 0.6 - 1.0 / 0.6 - 0.9 cm LVPW Diastolic Thickness 0.8 cm 0.6 - 1.0 / 0.6 - 0.9 cm LV Relative Wall Thickness 0.4 RV Internal Dim ED PLAX 2.9 cm LA Systolic Diameter LX 3.4 cm 3.0 - 4.0 / 2.7 - 3.8 cm LV Diastolic Volume MOD 2C 62.6 cm??? LV Systolic Volume MOD 2C 24.7 cm??? LV Ejection Fraction MOD 2C 60.6 % LV Cardiac Index MOD 2C 1314.8 cm???/min???m??? LV Diastolic Length 2C 8.6 cm LV Systolic Length 2C 6.9 cm LA Volume 43.7 cm??? 18 - 58 / 22 - 52 cm??? LA Volume Index 25.2 cm???/m??? 16 - 28 cm???/m??? M-MODE Aortic Root Diameter MM 3.1 cm LA Systolic Diameter MM 3.2 cm LA Ao Ratio MM 1.1 MV E Point Septal Separation 0.4 cm AV Cusp Separation MM 2.2 cm DOPPLER AV Peak Velocity 117.3 cm/s AV Peak Gradient 5.5 mmHg MV Area PHT 2.5 cm??? Mitral E Point Velocity 82.0 cm/s Mitral A Point Velocity 63.7 cm/s Mitral E to A Ratio 1.3 MV Deceleration Time 306.9 ms MV E' Velocity 10.4 cm/s Mitral E to MV E' Ratio 7.9 TR Peak Velocity 188.6 cm/s TR Peak Gradient 14.2 mmHg Right Ventricular Systolic Press 19.2 mmHg FINDINGS Left Ventricle Left ventricular ejection fraction is estimated at 55-60 %. Left ventricular cavity size normal. Left ventricular wall thickness normal. Normal left ventricular wall motion. Normal average global longitudinal strain of the left ventricle Right Ventricle Normal right ventricular size. Right ventricular systolic pressure within normal limits. Right Atrium Normal right atrial size. Left Atrium Normal left atrial size. Mitral Valve Structurally normal mitral valve. No mitral stenosis, regurgitation or prolapse. Aortic Valve Trileaflet aortic valve. No aortic stenosis. Tricuspid Valve Structurally normal tricuspid valve. Trace tricuspid regurgitation. Pulmonic Valve Pulmonic valve not well visualized. No pulmonic regurgitation. Pericardium No pericardial effusion. Aorta Normal size aortic root and proximal ascending aorta. CONCLUSIONS Left ventricular ejection fraction 55-60% RVSP 19 No mitral regurgitation Trace tricuspid regurgitation No pericardial effusion Previewed by: Dr. Rahul Thakur DO (Electronically Signed) Final Date: 08 January 2024 00:19
== END | disposition home or self-care (01) ==
LOC: RADECHMAIN 07-29 15:49
PROVIDERS: ATTEND Internal Medicine Hematology & Oncology
DX: Z01.818 Encounter for other preprocedural examination (principal); I36.1 Nonrheumatic tricuspid (valve) insufficiency; C50.812 Malignant neoplasm of overlapping sites of left female breast; F41.9 Anxiety disorder, unspecified; I10 Essential (primary) hypertension; R12 Heartburn
CPT/HCPCS: 93306

== ENCOUNTER → 2024-04-26 | Outpatient (CLI) | payer MEDICAID ==
--- NOTE | 2024-04-26 17:26 | CA ---
Transthoracic Echo Report Name: Samanta Soto Age: 53 Gender: F : 1970 Exam Date: 04/26/2024 13:04 Exam Location: [place] [facility] Ht (in): 67 Wt (lb): 140 Ordering Physician: Anuel Dominguez MD Attending/Referring Phys: Chief Librarian Branch Celena Lopez RDCS Procedure CPT: Indications: Z01.818 Chemo Cardiac Hx: arrythmia Technical Quality: Good Contrast 1: Total Dose (mL): Contrast 2: Total Dose (mL): MEASUREMENTS (Male / Female) Normal Values 2D ECHO LV Diastolic Diameter PLAX 4.3 cm 4.2 - 5.9 / 3.9 - 5.3 cm LV Systolic Diameter PLAX 3.4 cm IVS Diastolic Thickness 0.9 cm 0.6 - 1.0 / 0.6 - 0.9 cm LVPW Diastolic Thickness 0.8 cm 0.6 - 1.0 / 0.6 - 0.9 cm LV Relative Wall Thickness 0.4 RV Internal Dim ED PLAX 3.0 cm LA Systolic Diameter LX 2.8 cm 3.0 - 4.0 / 2.7 - 3.8 cm LV Diastolic Volume MOD BP 93.5 cm??? 67 - 155 / 56 - 104 cm??? LV Systolic Volume MOD BP 35.3 cm??? 22 - 58 / 19 - 49 cm??? LV Ejection Fraction MOD BP 62.2 % >= 55 % LV Cardiac Index MOD BP 2786.3 cm???/min???m??? LV Diastolic Volume MOD 4C 96.6 cm??? LV Systolic Volume MOD 4C 32.6 cm??? LV Ejection Fraction MOD 4C 66.2 % LV Cardiac Index MOD 4C 3064.4 cm???/min???m??? LV Diastolic Length 4C 7.8 cm LV Systolic Length 4C 6.5 cm LV Diastolic Volume MOD 2C 89.2 cm??? LV Systolic Volume MOD 2C 37.3 cm??? LV Ejection Fraction MOD 2C 58.2 % LV Cardiac Index MOD 2C 2483.8 cm???/min???m??? LV Diastolic Length 2C 7.7 cm LV Systolic Length 2C 6.2 cm LA Volume 46.2 cm??? 18 - 58 / 22 - 52 cm??? LA Volume Index 26.7 cm???/m??? 16 - 28 cm???/m??? DOPPLER AV Peak Velocity 161.0 cm/s AV Peak Gradient 10.4 mmHg MV Area PHT 3.1 cm??? Mitral E Point Velocity 82.3 cm/s Mitral A Point Velocity 66.2 cm/s Mitral E to A Ratio 1.2 MV Deceleration Time 245.8 ms TR Peak Velocity 241.4 cm/s TR Peak Gradient 23.3 mmHg Right Ventricular Systolic Press 27.4 mmHg FINDINGS Left Ventricle Left ventricular ejection fraction is estimated at 55-60 %. Left ventricular cavity size normal. Left ventricular wall thickness normal. Normal left ventricular wall motion. Normal LV systolic strain Right Ventricle Normal right ventricular size and function. Right ventricular systolic pressure within normal limits. Right Atrium Normal right atrial size. No right atrial thrombus or mass seen. Left Atrium Normal left atrial size. No left atrial thrombus or mass present. Mitral Valve Structurally normal mitral valve. Trace to mild mitral regurgitation. Aortic Valve Trileaflet aortic valve. No aortic valve stenosis or regurgitation. Tricuspid Valve Structurally normal tricuspid valve. Mild tricuspid regurgitation. Pulmonic Valve Structurally normal pulmonic valve. No pulmonic regurgitation. Pericardium No pericardial or pleural effusion. Aorta Normal size aortic root and proximal ascending aorta. CONCLUSIONS Normal LV systolic function Previewed by: Dr. Sky Walters MD (Electronically Signed) Final Date: 26 April 2024 17:25
== END | disposition home or self-care (01) ==
LOC: RADECHMAIN 12:48
PROVIDERS: ATTEND Internal Medicine Hematology & Oncology
DX: Z01.818 Encounter for other preprocedural examination (principal); C50.812 Malignant neoplasm of overlapping sites of left female breast; F41.9 Anxiety disorder, unspecified; I10 Essential (primary) hypertension; R12 Heartburn
CPT/HCPCS: 93306

== ENCOUNTER → 2024-05-16 | Outpatient (CLI) | payer MEDICAID | END | disposition home or self-care (01) | LOC: LABWHC1 12:00 | PROVIDERS: ATTEND Internal Medicine Hematology & Oncology | DX: C50.812 Malignant neoplasm of overlapping sites of left female breast (principal); I10 Essential (primary) hypertension; F41.9 Anxiety disorder, unspecified; R12 Heartburn; R94.31 Abnormal electrocardiogram [ECG] [EKG]; R00.1 Bradycardia, unspecified | CPT/HCPCS: 36415; 93005 ==

== ENCOUNTER → 2024-10-06 | Outpatient (CLI) | payer MEDICAID ==
--- NOTE | 2024-10-07 11:04 | PE ---
EXAMINATION TYPE: PET CT fusion skull to thigh DATE OF EXAM: 10/06/2024 CLINICAL INDICATION:Female, 54 years old with history of C50.812 breast ca; TECHNIQUE: Following the intravenous administration of 9.82 mCi of F-18 FDG, whole body images are performed from the skull base to the midthigh. Images are reviewed on the computer in the coronal, a xial, and sagittal planes. Reconstructed rotating images are created on independent workstation and reviewed on the computer. A non-contrast CT is performed in conjunction with the PET scan. Glucose level 92 mg/dL CT DLP: 386.18 mGycm, Automated exposure control for dose reduction was used. COMPARISON: CT 08/05/2023, PET/CT 04/17/2023, MRI: 05/08/2023 FINDINGS: Mediastinal SUV mean is 2.2. Hepatic parenchyma SUV mean is 3.3. SKULL BASE AND NECK: No suspicious radiotracer activity. CHEST, MEDIASTINUM, AND HILAR REGION: Bilateral breasts are surgical absent. Additional postsurgical changes of the left breast with interv al removal of left breast implant with flap and lymph node dissection. There is some chest wall thick ening in this region. No corresponding FDG activity. Anterior left upper lobe particular scarring lik rashmi related to post radiation changes. No radiotracer uptake. ABDOMEN AND PELVIS: No suspicious radiotracer activity. MUSCULOSKELETAL STRUCTURES: No suspicious radiotracer activity. OTHER CT: Right chest wall IJ Mediport catheter approach with distal tip terminating at the superior cavoatrial junction. IMPRESSION: Interval postsurgical changes from left breast implant removal and axillary lymph node dissection. No suspicious radiotracer activity identified. No other sites of suspicious radiotracer activity. [facility], , 10/07/2024 11:02 AM
== END | disposition home or self-care (01) ==
LOC: RADPETMAIN 06:25
PROVIDERS: ATTEND Internal Medicine Hematology & Oncology
DX: C50.812 Malignant neoplasm of overlapping sites of left female breast (principal); Z98.82 Breast implant status
CPT/HCPCS: 78815; A9552